=== PATIENT | male | born 1945 | race Caucasian/White ===

== ENCOUNTER 2016-07-02 19:43 | Observation (INO) | payer MEDICARE, OTHER ==
[~2016-07-02] VITALS: Ht 182.9 cm; Wt 94.8 kg
[~2016-07-02 19:43] MED LIST: ASPI81TA45 PO; CALTTAB PO; DENO120P SC; ENZA40CA PO; GLUCTAB PO; LEUP7.5S2 SC; LIPI40TA PO; LISI-360 PO; METO50CR PO; PROP150 PO; RIVA20 PO; TAMS0.4C67 PO; UMEC1AER INH
[2016-07-02 19:45] VITALS: BP 152/75; PULSE 72; RESP 14; TEMP 98.2; O2SAT 97
[2016-07-02] MEDS ORDERED: SODIUM CHLOR 0.9% 1000 ML INJ 1,000 ML IV ONE (19:50)
[2016-07-02 19:51] VITALS: O2SAT 97
[2016-07-02] MEDS ORDERED: XARE20TA PO (19:59)
[2016-07-02] MEDS ORDERED: DENO120P SQ (19:59)
[2016-07-02] MEDS ORDERED: LISI-519 PO (19:59)
[2016-07-02] MEDS ORDERED: TAMS0.4C4 PO (19:59)
[2016-07-02] MEDS ORDERED: LEUP1INJ10 SQ (19:59)
[2016-07-02] MEDS ORDERED: LEVO25TA4 PO (19:59)
[2016-07-02] MEDS ORDERED: LIPI80TA PO (19:59)
[2016-07-02] MEDS ORDERED: CALCCHW4 CHEW (19:59)
[2016-07-02] MEDS ORDERED: METF500T PO (19:59)
[2016-07-02] MEDS ORDERED: METO50TA11 PO (19:59)
[2016-07-02] MEDS ORDERED: PROP150T PO (19:59)
--- NOTE | 2016-07-02 20:01 | RADHPO ---
EXAM DATE/TIME: 07/02/2016 19:48 [facility] COMPARISON: No previous studies available for comparison. INDICATIONS : Stroke alert. Slow speech, right sided tingling. RADIATION DOSE: 60.90 CTDIvol (mGy) This report was called by Dr. Finch to Dr. Kathleen at 7: 58 PM MEDICAL HISTORY : Non-responsive. SURGICAL HISTORY : Non-responsive. ENCOUNTER: Initial ACUITY: 1 day PAIN SCALE: 0/10 LOCATION: cranial TECHNIQUE: Multiple contiguous axial images were obtained of the head. Using automated exposure control and adj ustment of the mA and/or kV according to patient size, radiation dose was kept as low as reasonably a chievable to obtain optimal diagnostic quality images. FINDINGS: CEREBRUM: The ventricles are normal for age. No evidence of midline shift, mass lesion, hemorrhage or acute in farction. No extra-axial fluid collections are seen. POSTERIOR FOSSA: The cerebellum and brainstem are intact. The 4th ventricle is midline. The cerebellopontine angle i s unremarkable. EXTRACRANIAL: The visualized portion of the orbits is intact. SKULL: The calvaria is intact. No evidence of skull fracture. CONCLUSION: Negative noncontrast head CT. Ricky Finch MD on July 02, 2016 at 20:00 Board Certified Radiologist. This report was verified electronically.
[2016-07-02] MEDS ORDERED: HYDR2TAB PO (20:02)
[2016-07-02] MEDS ORDERED: ONDA1TAB17 PO (20:02)
[2016-07-02] MEDS ORDERED: ZYTI250T PO (20:02)
[2016-07-02] MEDS ORDERED: PRED5TAB PO (20:02)
[2016-07-02 20:16] LABS: BASOPHIL % 0.4 % (0.0-2.0); EOSINOPHIL # 0.2 TH/MM3 (0-0.4); EOSINOPHIL % 2.2 % (0.0-4.0); HEMATOCRIT 39.4 % (39.0-51.0); HEMO FLAGS DIFF FINAL; LYMPH % 22.5 % (9.0-44.0); LYMPHOCYTE # 1.9 TH/MM3 (1.0-4.8); MEAN CELL VOLUME 97.3 FL (80.0-100.0); MEAN CORPUSCULAR HEMOGLOBIN 32.9 PG (27.0-34.0); MEAN CORPUSCULAR HGB CONC 33.8 % (32.0-36.0); MONO % 6.1 % (0.0-8.0); NEUT % 68.8 % (16.0-70.0); PLATELET COUNT 165 TH/MM3 (150-450); RED BLOOD COUNT 4.05 MIL/MM3 (4.50-5.90); RED CELL DISTRIBUTION WIDTH 13.3 % (11.6-17.2); WHITE BLOOD COUNT 8.6 TH/MM3 (4.0-11.0)
[2016-07-02 20:22] LABS: CHLORIDE 103 MEQ/L (98-107); POTASSIUM 4.1 MEQ/L (3.5-5.1); SODIUM (NA) 140 MEQ/L (136-145)
[2016-07-02 20:26] LABS: ANION GAP 9 MEQ/L (5-15); BICARBONATE 27.6 MEQ/L (21.0-32.0); BLOOD UREA NITROGEN 19 MG/DL (7-18)
[2016-07-02 20:28] LABS: PROTHROMBIN TIME - PATIENT 10.7 SEC (9.8-11.6)
[2016-07-02 20:29] LABS: GLOMERULAR FILTRATION RATE 74 ML/MIN (>89)
[2016-07-02 20:40] LABS: CREATINE KINASE 57 U/L (39-308)
[2016-07-02] MEDS ORDERED: ASPIRIN 325 MG TAB PO ONE (20:45)
[2016-07-02 20:50] VITALS: BP 149/71; PULSE 66; RESP 14; O2SAT 98
--- NOTE | 2016-07-02 21:01 | PD ---
HPI Chief Complaint: Stroke Alert Time Seen by Provider: 19:50 Travel History International Travel<30 days: No Contact w/Intl Traveler<30days: No Traveled to known affect area: No History of Present Illness HPI Patient is 71 years old. About 1 hour prior to ER arrival he had sudden onset paresthesias and weakness in the right upper extremity. He is also dysarthric. He came to the ER and on the way symptoms improved by about "90%" according to the . In the ER stroke alert was activated due to dysarthria, quite mild. Patient has no other complaint. He notes stopping Xarelto one week prior due to GI bleed and hematuria as well as bleeding gums. Location neurologic. Onset sudden. Timing constant. Severity decreasing. PFSH Past Medical History Arthritis: No Asthma: No Anxiety: No Depression: No Heart Rhythm Problems: Yes (PVC's, AF) Cancer: Yes (MET. PROSTATE CANCER WITH METS TO BONE AND LYMPH NODES) Cardiovascular Problems: Yes High Cholesterol: Yes Chemotherapy: Yes Chest Pain: Yes Congestive Heart Failure: No COPD: No Cerebrovascular Accident: Yes (25 years ago then MRI was clear 5-6 years later) Coronary Artery Disease: Yes Diabetes: Yes Patient Takes Glucophage: Yes Endocrine: No Genitourinary: Yes Hypertension: Yes Kidney Stones: No Musculoskeletal: Yes Neurologic: Yes Psychiatric: No Reproductive: No Respiratory: Yes Migraines: No Pneumonia: Yes (MAR 2015) Radiation Therapy: Yes (prostate, hip) Renal Failure: No Sleep Apnea: No Thyroid Disease: No Tetanus Vaccination: > 5 Years Influenza Vaccination: Yes Past Surgical History Abdominal Aneurysm Repair: Yes (Stent) Abdominal Surgery: Yes (AAA repair with stents ) Cardiac Surgery: Yes (CAD, stents) Ear Surgery: No Endocrine Surgery: Yes (Diabetic) Eye Surgery: Yes (BL cataracts ) Genitourinary Surgery: No Oral Surgery: Yes (tonsillectomy/ child) Thoracic Surgery: No Tonsillectomy: Yes Other Surgery: Yes Social History Alcohol Use: Yes (Occ.) Tobacco Use: No Substance Use: No Allergies-Medications (Allergen,Severity, Reaction): Coded Allergies: Codeine (Verified Allergy, Intermediate, RASH, 07/02/16) Penicillin (Verified Allergy, Intermediate, RASH, 07/02/16) Reported Meds & Prescriptions Reported Meds & Active Scripts Active Reported Hydromorphone (Hydromorphone HCl) 2 Mg Tab 1 Mg PO Q4H PRN Ondansetron (Ondansetron HCl) 8 Mg Tab 8 Mg PO TID Zytiga (Abiraterone) 250 Mg Tab 250 Mg PO DAILY Hazardous agent; use appropriate precautions for handling & disposal. Take on an empty stomach, 1 hr before or 2 hrs after food. Swallow whole, do not crush or chew. Prednisone 5 Mg Tab 5 Mg PO BID Xgeva Inj (Denosumab) 120 Mg/1.7 Ml Inj 120 Mg SQ DIRECTED Eligard (Leuprolide Acetate (3 Month)) 22.5 Mg Inj 22.5 Mg SQ DIRECTED EVERY 4 MONTHS Tamsulosin (Tamsulosin HCl) 0.4 Mg Cap 0.4 Mg PO BID Calcium 500/D (Calcium Carbonate-Cholecalciferol) 500-400 Mg-Unit Chew 1 Tab CHEW DAILY Levothyroxine (Levothyroxine Sodium) 25 Mcg Tab 25 Mcg PO DAILY Metoprolol Succinate ER 24 HR (Metoprolol Succinate) 50 Mg Tab 50 Mg PO DAILY Propafenone (Propafenone HCl) 150 Mg Tab 150 Mg PO Q8HR Xarelto (Rivaroxaban) 20 Mg Tab 20 Mg PO DAILY Metformin (Metformin HCl) 500 Mg Tab 500 Mg PO TIDPC With meals Lisinopril 5 Mg Tab 5 Mg PO DAILY Lipitor (Atorvastatin Calcium) 80 Mg Tab 80 Mg PO HS Review of Systems Except as stated in HPI: all other systems reviewed are Neg Physical Exam Narrative GENERAL: 71-year-old male pleasant no acute distress SKIN: Focused skin assessment warm/dry. HEAD: Atraumatic. Normocephalic. EYES: Pupils equal and round. No scleral icterus. No injection or drainage. ENT: No nasal bleeding or discharge. Mucous membranes pink and moist. NECK: Trachea midline. No JVD. CARDIOVASCULAR: Regular rate and rhythm. No murmur appreciated. RESPIRATORY: No accessory muscle use. Clear to auscultation. Breath sounds equal bilaterally. GASTROINTESTINAL: Abdomen soft, non-tender, nondistended. Hepatic and splenic margins not palpable. MUSCULOSKELETAL: No obvious deformities. No clubbing. No cyanosis. No edema. NEUROLOGICAL: Cranial nerves appears symmetric and intact 2 through 12. Motor function is 5 over 5 and equal bilaterally. Major muscle groups including handgrip. There is no pronator drift. The patient's speech is incomprehensible however there is a very mild dysarthria, which the states is abnormal. PSYCHIATRIC: Appropriate mood and affect; insight and judgment normal. Data Data Last Documented VS Vital Signs Date Time Temp Pulse Resp B/P Pulse Ox O2 Delivery O2 Flow Rate FiO2 07/02/16 19:45 97 Room Air 07/02/16 19:45 98.2 72 14 152/75 Vital signs reviewed Orders Cath For Specimen (07/02/16 19:50) Neuro Checks Q2HX12,Q4H (07/02/16 19:50) Nursing Bedside Swallow Assess .ONCE (07/02/16 19:50) Activity Bed Rest (07/02/16 19:50) Diet Npo (07/03/16 Breakfast) Prothrombin Time / Inr (Pt) (07/02/16 19:50) Act Partial Throm Time (Ptt) (07/02/16 19:50) Complete Blood Count With Diff (07/02/16 19:50) Basic Metabolic Panel (Bmp) (07/02/16 19:50) Fibrinogen (07/02/16 19:50) Creatine Kinase (Cpk) (07/02/16 19:50) Troponin I (07/02/16 19:50) Ua Includes Microscopic (07/02/16 19:50) Drug Screen, Random Urine (07/02/16 19:50) Type And Screen (07/02/16 19:50) Ct Brain W/O Iv Contrast(Rout) (07/02/16 ) Electrocardiogram (07/02/16 ) Consult Neurology (07/02/16 19:50) Sodium Chlor 0.9% 1000 Ml Inj (Ns 1000 M (07/02/16 19:50) Blood Glucose (07/02/16 19:50) Ecg Monitoring (07/02/16 19:50) Iv Access Insert/Monitor (07/02/16 19:50) NPO (07/02/16 19:50) Oximetry (07/02/16 19:50) Oxygen Administration (07/02/16 19:50) Resp Oxygen Michael C Titrat 1-4 L (07/02/16 19:50) Aspirin (Aspirin) (07/02/16 20:45) Admit Order (Ed Use Only) (07/02/16 20:36) Labs Laboratory Tests Test 07/02/16 20:00 White Blood Count 8.6 TH/MM3 Red Blood Count 4.05 MIL/MM3 Hemoglobin 13.3 GM/DL Hematocrit 39.4 % Mean Corpuscular Volume 97.3 FL Mean Corpuscular Hemoglobin 32.9 PG Mean Corpuscular Hemoglobin 33.8 % Concent Red Cell Distribution Width 13.3 % Platelet Count 165 TH/MM3 Mean Platelet Volume 7.6 FL Neutrophils (%) (Auto) 68.8 % Lymphocytes (%) (Auto) 22.5 % Monocytes (%) (Auto) 6.1 % Eosinophils (%) (Auto) 2.2 % Basophils (%) (Auto) 0.4 % Neutrophils # (Auto) 6.0 TH/MM3 Lymphocytes # (Auto) 1.9 TH/MM3 Monocytes # (Auto) 0.5 TH/MM3 Eosinophils # (Auto) 0.2 TH/MM3 Basophils # (Auto) 0.0 TH/MM3 CBC Comment DIFF FINAL Differential Comment Prothrombin Time 10.7 SEC Prothromb Time International 1.0 RATIO Ratio Activated Partial 25.0 SEC Thromboplast Time Sodium Level 140 MEQ/L Potassium Level 4.1 MEQ/L Chloride Level 103 MEQ/L Carbon Dioxide Level 27.6 MEQ/L Anion Gap 9 MEQ/L Blood Urea Nitrogen 19 MG/DL Creatinine 0.99 MG/DL Estimat Glomerular Filtration 74 ML/MIN Rate Random Glucose 165 MG/DL Calcium Level 8.8 MG/DL Total Creatine Kinase 57 U/L Troponin I LESS THAN 0.02 NG/ML [facility] Medical Screen Exam Complete: Yes Emergency Medical Condition: Yes Differential Diagnosis Stroke, TIA, electrolyte imbalance, hypoglycemia Narrative Course CBC & BMP Diagram 07/02/16 20:00 Troponins less than 0.02 EKG reveals a sinus rhythm at a rate of 68 normal axis intervals no ischemic injury pattern Last [address] 07/02/16 0000 Signed Impressions: Service Date/Time: Saturday, July 02, 2016 19:48 - CONCLUSION: Negative noncontrast head CT. Ricky Finch MD The patient is a poor candidate for TPA with absolute contraindications present. Case discussed with neurologist, Dr. Gonzalez. No TPA for this visit. Admission for further work up of stroke. D/w Ricky Sheldon. Stroke Alert NIHSS NIH Stroke Scale Result: 1 NIHSS Time Completed: 19:55 Thrombolytic Contraindications Contraindications Comment: Please see narrative course and history of present illness Diagnosis Diagnosis: Primary Impression: Stroke Qualified Code: I63.9 - Cerebrovascular accident (CVA), unspecified mechanism Admitting Physician Requests: Admit Saroj Kathleen MD Jul 02, 2016 21:01
[2016-07-02 22:10] VITALS: O2SAT 97
[2016-07-02] MEDS ORDERED: GLUCAGON 1 MG/ML VIAL IM/SQ PRN (22:15)
[2016-07-02] MEDS ORDERED: ONDANSETRON HCL 4 MG/2 ML VIAL IVP PRN (22:15)
[2016-07-02] MEDS ORDERED: ENALAPRILAT 1.25 MG/ML VIAL IV PRN (22:15)
[2016-07-02] MEDS ORDERED: NALOXONE HCL 0.4 MG/ML AMP IV PRN (22:15)
[2016-07-02] MEDS ORDERED: SENNOSIDES 8.6 MG TAB PO PRN (22:15)
[2016-07-02] MEDS ORDERED: DEXTROSE 50% IN WATER 50 ML VIAL(D50) IV PUSH PRN (22:15)
[2016-07-02] MEDS ORDERED: SODIUM CHLORIDE 0.9% FLUSH 10 ML FLUSH IV FLUSH PRN ×2 (22:15)
[2016-07-02] MEDS ORDERED: BISACODYL 10 MG SUPP RECTAL PRN (22:15)
[2016-07-02] MEDS ORDERED: ENOXAPARIN SODIUM 40 MG/0.4 ML SYRINGE SQ SCH (23:00)
[2016-07-02] MEDS: SODIUM CHLOR 0.9% 1000 ML INJ 1,000 ML IV SCH (23:31)
[2016-07-02 23:33] VITALS: BP 148/75; PULSE 66; O2SAT 99
[2016-07-03] VITALS (10 sets, daily range): BP systolic 117–140; BP diastolic 63–76; PULSE 51–74; RESP 12–20; TEMP 96–98.1; O2SAT 96–99
[2016-07-03] MEDS: INSULIN ASPART SUPPLEMENTAL SCALE SQ SCH ×4 (07:00→22:03)
[2016-07-03] MEDS ORDERED: INSULIN ASPART SUPPLEMENTAL SCALE SQ SCH (07:00)
[2016-07-03] MEDS: SODIUM CHLOR 0.9% 1000 ML INJ 1,000 ML IV SCH ×3 (08:03→16:22)
--- NOTE | 2016-07-03 08:42 | RADHPO ---
EXAM DATE/TIME: 07/03/2016 07:57 [facility] COMPARISON: No previous studies available for comparison. INDICATIONS : CVA. MEDICAL HISTORY : Hypercholesterolemia. Hypertension. Aneurysm, abdominal. Pneumonia. CVA. CAD. Hypertension. A-Fib. Di abetes. Prostate cancer. Mets to bone and lymph nodes. Chemotherapy. Radiation therapy. SURGICAL HISTORY : Tonsillectomy. Abdominal aortic aneurysm repair. Coronary artery stent. ENCOUNTER: Initial ACUITY: 2 days PAIN SCORE: 1/10 LOCATION: Bilateral neck PEAK SYSTOLIC VELOCITIES (cm/sec): ICA/CCA RATIO: Right: 1.4 Left: 1.2 ICA: Right: 90 Left: 78 CCA: Right: 65 Left: 64 ECA: Right: 74 Left: 82 VERTEBRAL: Right: 39 antegrade Left: 36 antegrade Elevated flow velocities and ICA/CCA ratios have been found to correlate with increased degrees of vessel stenosis, calculated as percentage of diameter relative to a normal segment of distal ICA/CCA FINDINGS: RIGHT CAROTID: No significant stenosis is visualized. The waveforms are within normal limits. LEFT CAROTID: No significant stenosis is visualized. The waveforms are within normal limits. VERTEBRAL ARTERIES: Antegrade flow is seen in both vertebral arteries. MISCELLANEOUS: None. CONCLUSION: No evidence of flow-limiting carotid stenosis Ricky Conley MD on July 03, 2016 at 8:40 Board Certified Radiologist. This report was verified electronically.
[2016-07-03] MEDS ORDERED: ASPIRIN 325 MG TAB PO SCH (09:00)
[2016-07-03] MEDS ORDERED: SODIUM CHLORIDE 0.9% FLUSH 10 ML FLUSH IV FLUSH SCH (09:00)
[2016-07-03] MEDS: SODIUM CHLORIDE 0.9% FLUSH 10 ML FLUSH IV FLUSH SCH ×2 (09:48→21:00)
[2016-07-03 10:09] LABS: HDL CHOLESTEROL 46.6 MG/DL (40.0-60.0); LDL CHOLESTEROL 41 MG/DL (0-99)
[2016-07-03] MEDS ORDERED: HEPARIN-D5W INJ 250 ML IV SCH (10:15)
--- NOTE | 2016-07-03 10:30 | MH ---
cc: CHARLIE MARCH MD DATE OF ADMISSION: 07/02/2016 CHIEF COMPLAINT Numbness and weakness on the right upper extremity. HISTORY OF PRESENT ILLNESS This is a 71-year-old male with past medical-surgical history significant for atrial fibrillation, history of prostate cancer with mets to bone and lymph node, history of stroke 30 years ago and a year ago, hyperlipidemia, diabetes mellitus, history of chemotherapy and radiation therapy in the past, history of hypertension, history of pneumonia in March of 2015, radiation therapy to prostate and hip, history of abdominal aortic aneurysm, stent placement, coronary artery stent placement, history of bilateral cataract surgery and tonsillectomy as a child. He came to the ER at [facility] [place] complaining of numbness and weakness in the right upper extremity which lasted no more than 24 hours and he has some dysarthria too, which totally resolved and the symptoms have been improved about 90% yesterday and today he is totally asymptomatic. A stroke alert was activated in the ER due to dysarthria and numbness and weakness on the right upper extremity. He stopped Xarelto a week ago due to a GI bleed and hematuria as well as bleeding gums. Other than that nothing significant. PAST MEDICAL HISTORY/PAST SURGICAL HISTORY As dictated above. The patient also has a history of hypothyroidism, BPH. SOCIAL HISTORY Denies any smoking, drinks alcohol occasionally. Denies any drug abuse. Lives at home with . 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 FAMILY HISTORY Family history significant for coronary artery disease. ALLERGIES CODEINE, PENICILLIN. MEDICATIONS Include: 1. Dilaudid 2 mg p.o. q. 4-hour. 2. Zofran 8 mg p.o. t.i.d. 3. Zytiga 250 mg p.o. daily. 4. Prednisone 5 mg p.o. b.i.d. 5. Xgeva injection 120 mg subcutaneous as directed. 6. Eligard 22.5 mg subcutaneous every 4-months. 7. Flomax 0.4 mg p.o. b.i.d. 8. Calcium with vitamin D 500/400 units p.o. daily. 9. Levothyroxine 25 mcg p.o. daily. 10. Metoprolol ER 50 mg p.o. daily. 11. Propafenone 150 mg p.o. q.8 hour. 12. Metformin 500 mg p.o. t.i.d. 13. Lisinopril 5 mg p.o. daily. 14. Lipitor 80 mg p.o. at bedtime. REVIEW OF SYSTEMS All review of systems are negative at the time of examination. PHYSICAL EXAMINATION GENERAL: This is 71-year-old male laying on the bed, not in acute distress. VITAL SIGNS: Temperature 97.7, heart rate 65, respirations 20, blood pressure 136/66, O2 saturation 97% on room air. HEENT: Normocephalic, atraumatic. EOMI. PERRL. Oral mucosa moist. NECK: Neck is supple. No visible thyromegaly or neck mass. Trachea central. CVS: Regular rate and rhythm. RESPIRATORY: Respirations are clear to auscultation bilaterally. ABDOMEN: Soft, nontender. Bowel sounds audible. EXTREMITIES: No cyanosis or clubbing. Full range of motion of all extremities. NEURO: Awake, alert, oriented x4. No focal deficits. SKIN: Warm and dry. PSYCHE: The patient is cooperative. Mood and affect is normal. LABORATORY DATA Include CBC totally unremarkable. BMP totally unremarkable except for BUN 19 high, GFR 74 low, blood glucose 165 high. Troponin-I less than 0.02. Lipid panel is pending. PT 10.7, INR 1.0, APTT 25.0, fibrinogen 324. IMAGING STUDIES CT brain done shows nothing acute. Carotid ultrasound done shows no evidence of flow-limiting carotid stenosis. ASSESSMENT/PLAN 1. This is a 71-year-old male who came to the ER diagnosed with right upper extremity numbness and weakness and dysarthria, which is totally resolved, most likely secondary to TIA. The patient is on aspirin 325 mg p.o. daily and also Lovenox 40 mg subcutaneous q. 24-hour. Neurology consulted. Neuro check every 4 hours. Further recommendation per neurology. 2. Diabetes mellitus. ADA 1800 calorie diet. NovoLog low-dose, sliding scale. Check blood sugars a.c. and h.s. Continue home medication. Will monitor blood sugar closely. 3. History of BPH. Continue with Flomax 0.4 mg twice a day. 4. History of hypothyroidism. Continue with levothyroxine 25 mcg p.o. daily. 5. Hypertension. Continue home medication. Monitor blood pressure. 6. Hyperlipidemia. Continue Lipitor 80 mg p.o. at bedtime. 7. Arthritis. Continue home medication. 8. History of coronary artery disease. Continue home medication. 9. History of for coronary stent placement in the past. 10. 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 11. History of atrial fibrillation. The patient was on Xarelto before and got blood per rectum as well as hematuria and bleeding gums which has been stopped. 12. History of abdominal aortic aneurysm repair, coronary artery stenting, cataract surgery and tonsillectomy in the past. 13. DVT prophylaxis, on Lovenox 40 mg subcutaneous daily. 14. GI prophylaxis, Protonix 40 mg p.o. daily. We are going to manage the patient on a daily basis and make recommendation on a daily basis. Charlie March MD EA/LEONARDA /9:42 AM /10:05 AM
--- NOTE | 2016-07-03 11:28 | MB ---
cc: ROSETTA DIAZ DATE OF CONSULTATION: 07/03/2016 HISTORY OF PRESENT ILLNESS A 71-year-old right-handed man with hypertension, non-insulin dependent diabetes, hypercholesterolemia, cardiac stent, possibly a AAA with stent in his aorta, atrial fibrillation known on Xarelto which he stopped 11 days ago due to some hematuria, some black stools with some dark blood in it, bloody nose, bleeding in his gums. He has known cancer of the prostate, he says terminal with bone mets and mets in his nodes. He sees Dr. Gonsalez, he has been on some oral chemo. He had a stroke 30 years ago with some speech problems which cleared. Yesterday he had right arm weakness and numbness and face numbness and slurred speech, garbled speech for about 15 minutes, seemed to get better and then over 3 hours normalized. No vision loss. No chest pain or palpitations. SOCIAL HISTORY Nonsmoker, nondrinker. Lives with his . FAMILY HISTORY Negative for cancer, seizure, stroke. REVIEW OF SYSTEMS He denies any CABG, renal, hepatic or pulmonary disease, thyroid disease, lupus, seizure. PAST MEDICAL HISTORY 1. Remote broken wrist. 2. Carpal tunnel surgery bilaterally. 3. 2002 two cardiac stents. 4. Peripheral vascular disease 89% in the right, 40% on the left, status post surgery, angioplasty in the legs. 5. Cataract surgeries bilaterally. MEDICATIONS 1. He is on 325 of aspirin now. 2. Lovenox 40 q. 12. PHYSICAL EXAMINATION VITAL SIGNS: On exam afebrile, 53, 21, 36/66 to 152/75. NECK: There are no carotid bruits. HEART: Regular rhythm, I do not detect a murmur. Pupils are equal, visual corbett are full. Extraocular movements intact without nystagmus. Face symmetric with normal sensation. Tongue was midline. There is no drift. He had normal strength in upper and lower extremities bilaterally. DTRs are trace throughout. Toes are downgoing bilaterally. Pinprick is intact throughout. He is not ataxic on [id number]. Speech is fluent, he is not aphasic. Repetition is normal. Gait is steady. LABORATORY DATA CBC is normal, platelet count is normal. Hematocrit 39. Basic metabolic profile essentially normal. Cholesterol is pending. Troponin, CPK are normal. Coags were normal. IMAGING STUDIES Carotid ultrasound negative. CAT scan of the brain was read as normal. I reviewed the CAT scan films; probable artifact in the inferior jackelin on the right, otherwise CT does look normal. IMPRESSION Major TIA, history of atrial fibrillation, stroke in the past. He does need to be anticoagulated, at this point with his GI bleeding and neurological bleeding I would put him on Coumadin. I can start him on some IV heparin, no bolus ever. I would recommend having GI and neurology see him to further find sources of the bleeding. Keep his INR 2 to 2.5. Check an MRI of the brain, Echo, MRA of the neck and [id number]. I will be following him with you in the hospital. Now he appeared fully recovered, TIA here, possible small stroke but he appears intact neurologically at this time. I am going to discontinue his aspirin for now. Also with his history of bony mets, we will check MRI of his cervical, thoracic and lumbosacral spine. MD SAKSHI Khan/LEONARDA /10:11 AM /11:02 AM
[2016-07-03 11:32] LABS: MEAN CELL VOLUME 98.2 FL (80.0-100.0); MEAN CORPUSCULAR HEMOGLOBIN 33.2 PG (27.0-34.0); MEAN CORPUSCULAR HGB CONC 33.8 % (32.0-36.0); PLATELET COUNT 157 TH/MM3 (150-450); RED BLOOD COUNT 3.87 MIL/MM3 (4.50-5.90); RED CELL DISTRIBUTION WIDTH 13.4 % (11.6-17.2); REVIEW FLAG FINAL; WHITE BLOOD COUNT 7.2 TH/MM3 (4.0-11.0)
[2016-07-03 11:45] LABS: APTT (PATIENT) 27.1 SEC (24.3-30.1); PROTHROMBIN TIME - PATIENT 11.1 SEC (9.8-11.6)
--- NOTE | 2016-07-03 12:29 | EC ---
Study Study Date:07/03/2016 STUDY CONCLUSIONS SUMMARY - Left ventricle: The cavity size was normal. Wall thickness was normal. Systolic function was normal. The estimated ejection fraction was in the range of 55% to 60%. Wall motion was normal; there were no regional wall motion abnormalities. - Aortic valve: Mild regurgitation. - Mitral valve: Mild regurgitation. - Left atrium: The atrium was mildly dilated. - Tricuspid valve: Mild regurgitation. - Pulmonary arteries: Systolic pressure was mildly increased. PA peak pressure: 49mm Hg (S). If LV function is below 40, please consider prescribing an ACEI or ARB or document rationale for non-use. PROCEDURE DATA STUDY STATUS: Elective. Procedure: Transthoracic echocardiography. Image quality was good. Scanning was performed from the parasternal, apical, and subcostal acoustic windows. Study completion: The patient tolerated the procedure well. Transthoracic echocardiography. M-mode, complete 2D, complete spectral Doppler, and color Doppler. Patient status: Inpatient. CARDIAC ANATOMY LEFT VENTRICLE: The cavity size was normal. Wall thickness was normal. Systolic function was normal. The estimated ejection fraction was in the range of 55% to 60%. Wall motion was normal; there were no regional wall motion abnormalities. AORTIC VALVE: Trileaflet; normal thickness leaflets. Doppler: Transvalvular velocity was within the normal range. There was no stenosis. Mild regurgitation. AORTA: Aortic root: The aortic root was normal in size. MITRAL VALVE: Structurally normal valve. Doppler: Transvalvular velocity was within the normal range. There was no evidence for stenosis. Mild regurgitation. Peak gradient: 4mm Hg (D). LEFT ATRIUM: The atrium was mildly dilated. RIGHT VENTRICLE: The cavity size was normal. Wall thickness was normal. PULMONIC VALVE: Doppler: Transvalvular velocity was within the normal range. There was no evidence for stenosis. No regurgitation. TRICUSPID VALVE: Structurally normal valve. Doppler: Transvalvular velocity was within the normal range. Mild regurgitation. PULMONARY ARTERY: Systolic pressure was mildly increased. RIGHT ATRIUM: The atrium was normal in size. PERICARDIUM: There was no pericardial effusion. SYSTEMIC VEINS: Inferior vena cava: The vessel was normal in size. BASIC MEASUREMENTS ADULT NORMAL Left ventricle LV internal dimension, ED, chordal level, 44.6 mm 43-52 PLAX LV internal dimension, ES, chordal level, 33 mm 23-38 PLAX Fractional shortening, chordal level, PLAX *26 % >29 LV posterior wall thickness, ED 9.93 mm IVS/LVPW ratio, ED 0.92 <1.3 Volume, ED, MOD, 1-plane 73 ml Volume, ES, MOD, 1-plane 30 ml Ejection fraction, MOD, 1-plane 59 % Stroke volume, MOD, 1-plane 43 ml Ventricular septum Septal thickness, ED 9.16 mm Aortic valve Leaflet separation 22 mm 15-26 Right ventricle RV internal dimension, ED, PLAX 28 mm 19-38 BASIC MEASUREMENTS ADULT NORMAL Aortic valve Leaflet separation 22 mm 15-26 Aorta Root diameter, ED *39 mm 20-37 Left atrium Anterior-posterior dimension, ES *41 mm 19-40 LA/aortic root ratio 1.05 DOPPLER MEASUREMENTS ADULT NORMAL Main pulmonary artery Pressure, S *49 mm Hg =30 Aortic valve Regurgitant velocity, ED 351 cm/s Regurgitant deceleration 1790 cm/s^2 Regurgitant pressure half-time 572 ms Regurgitant gradient, ED 49 mm Hg Mitral valve Peak E-wave velocity 99.2 cm/s Peak A-wave velocity 109 cm/s Peak gradient, D 4 mm Hg Peak E/A ratio 0.9 Tricuspid valve Regurgitant peak velocity 314 cm/s Peak RV-RA gradient, S 39 mm Hg Maximal regurgitant velocity 314 cm/s Systemic veins Estimated CVP 10 mm Hg Right ventricle RV pressure, S *49 mm Hg <30 LEGEND: Mean values are shown as u=mean value. Asterisk (*) [place] values outside specified normal range. Prepared and signed by Lucien Galvez [id number]
[2016-07-03] MEDS: HEPARIN-D5W INJ 250 ML IV SCH (14:12)
[2016-07-03] MEDS ORDERED: WARFARIN SOD 5 MG TAB PO SCH (16:00)
--- NOTE | 2016-07-03 16:06 | RADHPO ---
EXAM DATE/TIME: 07/03/2016 14:57 [facility] COMPARISON: No previous studies available for comparison. INDICATIONS : CVA. Right sided numbness and aphasia. MEDICAL HISTORY : Hypertension. Carcinoma, prostate. Diabetes. SURGICAL HISTORY : Tonsillectomy. Abdominal aortic aneurysm repair. Carpal tunnel syndrome. ENCOUNTER: Subsequent ACUITY: 2 day PAIN SCORE: 3/10 LOCATION: cranial Please note a normal MRA of the brain does not entirely exclude the possibility of a small aneurysm, nor the possibility of distal intracranial vessel disease. TECHNIQUE: 3D time of flight MRA was performed. Source images, multiplanar STS MIP, and 3D volume MIP reconstru ctions were reviewed. FINDINGS: There is excellent visualization of the major intracranial arteries out to the second-order branch ve ssels. There is no evidence for aneurysm, vessel truncation or stenosis, and no evidence for vascula r malformation. CONCLUSION: Normal examination. Lucien Benitez MD on July 03, 2016 at 16:04 Board Certified Radiologist. This report was verified electronically.
--- NOTE | 2016-07-03 16:09 | RADHPO ---
EXAM DATE/TIME: 07/03/2016 14:57 [facility] COMPARISON: No previous studies available for comparison. INDICATIONS : CVA. Right sided weakness and aphasia. CONTRAST: 20 cc Omniscan (gadodiamide) IV MEDICAL HISTORY : Hypertension. Diabetes mellitus type 2. Carcinoma, prostate. SURGICAL HISTORY : Tonsillectomy. Abdominal aortic aneurysm repair. Carpal tunnel syndrome. ENCOUNTER: Initial ACUITY: 1 day PAIN SCORE: 0/10 LOCATION: Head. TECHNIQUE: Multiplanar, multisequence MRI of the brain was performed both prior to and following the administrat ion of paramagnetic contrast. FINDINGS: CEREBRUM: The ventricles are normal for age. No evidence of midline shift, mass lesion, hemorrhage or acute in farction. No extraaxial fluid collections are seen. The pituitary gland and suprasellar cistern are normal in configuration. WHITE MATTER: No significant signal abnormalities are seen in the white matter. POSTERIOR FOSSA: The cerebellum and brainstem are intact. The 4th ventricle is midline. The cerebellopontine angle is unremarkable. The cerebellar tonsils are normal in position. DIFFUSION IMAGING: No focal areas of restricted diffusion are seen. No evidence of acute infarction. EXTRACRANIAL: The visualized portions of the orbits and paranasal sinuses are unremarkable. POST-CONTRAST: No abnormal areas of parenchymal or dural enhancement. No evidence of blood-brain barrier breakdown. CONCLUSION: Normal examination. Lucien Benitez MD on July 03, 2016 at 16:07 Board Certified Radiologist. This report was verified electronically.
[2016-07-03 16:17] LABS: HEMOGLOBIN A1a 0.7 %; HEMOGLOBIN A1b 2.1 %; HEMOGLOBIN Ao 82.6 %; HEMOGLOBIN LA1C 2.2 %; HEMOGLOBIN P3 4.1 %
[2016-07-03 16:27] LABS: FREE T4 1.58 NG/DL (0.76-1.46)
[2016-07-03] MEDS ORDERED: GADODIAMIDE PF 287 MG/ML 20 ML VIAL (for RAD MRI) IV ONE (16:28)
--- NOTE | 2016-07-03 16:48 | RADHPO ---
EXAM DATE/TIME: 07/03/2016 14:57 [facility] COMPARISON: No previous studies available for comparison. INDICATIONS : Stroke. Right sided weakness with aphasia. CONTRAST: 20 cc Omniscan (gadodiamide) IV MEDICAL HISTORY : Hypertension. Diabetes mellitus type 2. Carcinoma, prostate. SURGICAL HISTORY : Tonsillectomy. Carpal tunnel syndrome. Abdominal aortic aneurysm repair. ENCOUNTER: Initial ACUITY: 1 day PAIN SCORE: 0/10 LOCATION: Neck. Percent stenosis is calculated using the diameter of the stenotic region over the diameter of the nor mal distal internal carotid artery. TECHNIQUE: Bolus infused MRA of the extracranial circulation was performed using a neurovascular coil. Post pro cessing was performed including rotating subvolume maximum intensity projections of each carotid teodoro ry, rotating full volume maximum intensity projections of both carotid arteries, sagittal and coronal sliding thin slab reformations of each carotid artery, and left oblique sliding thin slab reformatio n through the aortic arch to include the origin of the arch branch vessels. FINDINGS: AORTIC ARCH: Truncus arch anatomy. Widely patent arch vessels. RIGHT CAROTID: The common carotid artery is intact. The carotid bulb has a normal configuration without ulceration or narrowing. The internal carotid artery lumen is smooth without stenosis. The external carotid ar [place] is intact. LEFT CAROTID: The common carotid artery is intact. The carotid bulb has a normal configuration without ulceration or narrowing. The internal carotid artery lumen is smooth without stenosis. The external carotid ar [place] is intact. VERTEBRALS: The vertebral arteries have a symmetric diameter. No stenotic lesions are seen. CONCLUSION: No evidence of carotid stenosis Ricky Conley MD on July 03, 2016 at 16:46 Board Certified Radiologist. This report was verified electronically.
[2016-07-03 20:26] LABS: APTT (PATIENT) 38.9 SEC (24.3-30.1)
[2016-07-03] MEDS ORDERED: THIAMINE HCL 100 MG TAB PO ONE (20:45)
[2016-07-03 21:03] LABS: BLOOD, URINE LARGE (NEG); GLUCOSE,URINE NEG (NEG); KETONE, URINE NEG (NEG); NITRITE,URINE NEG (NEG); PH, URINE 5.5 (5.0-8.5)
[2016-07-03 21:09] LABS: RBC, URINE 100-200 /hpf (0-3); SQUAMOUS EPITHELIAL CELL URINE 0-5 /hpf (0-5); URINE COLOR YELLOW (YELLW/STRAW)
--- NOTE | 2016-07-03 21:10 | EKG ---
Date Performed: 07/02/2016 Time Performed: 20:05:16 PTAGE: 71 years EKG: Sinus rhythm Normal ECG PREVIOUS TRACING : 05/13/2015 18.48 Compared to prior tracing no significant change DOCTOR: Pola Fan Interpretating Date/Time 07/03/2016 21:08:24
[2016-07-03 21:13] LABS: AMPHETAMINE, URINE NEG (NEG); BARBITURATES, URINE NEG (NEG); COCAINE, URINE NEG (NEG)
[2016-07-03] MEDS: MULTIVITAMIN TAB PO SCH (22:02)
[2016-07-04] VITALS (9 sets, daily range): BP systolic 119–162; BP diastolic 55–85; PULSE 52–79; RESP 20; TEMP 96–97; O2SAT 93–99
[2016-07-04 03:11] LABS: APTT (PATIENT) 44.5 SEC (24.3-30.1)
[2016-07-04] MEDS: SODIUM CHLOR 0.9% 1000 ML INJ 1,000 ML IV SCH (05:07)
[2016-07-04] MEDS: INSULIN ASPART SUPPLEMENTAL SCALE SQ SCH ×4 (06:09→21:03)
[2016-07-04 07:37] LABS: AUTOMATED NEUTROPHIL # 4.7 TH/MM3 (1.8-7.7); BASOPHIL % 0.6 % (0.0-2.0); EOSINOPHIL # 0.3 TH/MM3 (0-0.4); EOSINOPHIL % 4.3 % (0.0-4.0); HEMATOCRIT 38.4 % (39.0-51.0); HEMO FLAGS DIFF FINAL; LYMPH % 25.1 % (9.0-44.0); LYMPHOCYTE # 1.9 TH/MM3 (1.0-4.8); MEAN CELL VOLUME 99.3 FL (80.0-100.0); MEAN CORPUSCULAR HEMOGLOBIN 33.1 PG (27.0-34.0); MEAN CORPUSCULAR HGB CONC 33.3 % (32.0-36.0); MONO % 7.5 % (0.0-8.0); NEUT % 62.5 % (16.0-70.0); PLATELET COUNT 138 TH/MM3 (150-450); RED BLOOD COUNT 3.87 MIL/MM3 (4.50-5.90); RED CELL DISTRIBUTION WIDTH 13.7 % (11.6-17.2); WHITE BLOOD COUNT 7.5 TH/MM3 (4.0-11.0)
[2016-07-04 07:47] LABS: CHLORIDE 109 MEQ/L (98-107); SODIUM (NA) 146 MEQ/L (136-145)
[2016-07-04 07:51] LABS: ANION GAP 8 MEQ/L (5-15); BICARBONATE 29.4 MEQ/L (21.0-32.0); BLOOD UREA NITROGEN 11 MG/DL (7-18)
[2016-07-04 07:54] LABS: ALT (GPT) 20 U/L (12-78); AST (GOT) 13 U/L (15-37); GLOMERULAR FILTRATION RATE 99 ML/MIN (>89)
[2016-07-04 07:56] LABS: TOTAL BILIRUBIN ADULT 0.4 MG/DL (0.2-1.0)
[2016-07-04 07:57] LABS: ALKALINE PHOSPHATASE 86 U/L (45-117)
--- NOTE | 2016-07-04 08:37 | HHI.PR ---
Subjective History of Present Illness Patient feel better no acute issue MRI/ MRA of Brain nothing Acute. Review of Systems Constitutional Constitutional: Fatigue, Weakness Vitals/Results Intake & Output 07/03/16 07/03/16 07/04/16 15:00 23:00 07:00 Intake Total 289 ml 695 ml 714 ml Output Total 450 ml 875 ml Balance -161 ml 695 ml -161 ml Intake Oral 0 ml 240 ml 60 ml IV Total 289 ml 455 ml 654 ml Output Urine Total 450 ml 875 ml # Voids 2 3 # Bowel Movements 0 0 Vital Signs Vital Signs Date Time Temp Pulse Resp B/P Pulse Ox O2 Delivery O2 Flow Rate FiO2 07/04/16 07:54 96.9 63 20 146/75 93 07/04/16 04:00 96.8 59 20 119/55 99 07/04/16 00:00 96.0 54 20 138/65 98 07/03/16 20:17 57 07/03/16 20:05 97 21 07/03/16 20:00 96.0 59 20 140/76 99 07/03/16 16:00 74 07/03/16 16:00 96.3 59 20 117/72 99 07/03/16 12:30 97.7 58 12 119/63 98 07/03/16 12:00 60 CBC/BMP: 07/04/16 0710 07/04/16 0710 Lab Results Laboratory Tests Test 07/03/16 07/03/16 07/03/16 07/04/16 11:05 20:09 20:52 02:50 White Blood Count 7.2 TH/MM3 Red Blood Count 3.87 MIL/MM3 Hemoglobin 12.8 GM/DL Hematocrit 38.0 % Mean Corpuscular Volume 98.2 FL Mean Corpuscular Hemoglobin 33.2 PG Mean Corpuscular Hemoglobin 33.8 % Concent Red Cell Distribution Width 13.4 % Platelet Count 157 TH/MM3 Mean Platelet Volume 7.5 FL Prothrombin Time 11.1 SEC Prothromb Time International 1.0 RATIO Ratio Activated Partial 27.1 SEC 38.9 SEC 44.5 SEC Thromboplast Time Vitamin B12 Level 168 PG/ML Free Thyroxine 1.58 NG/DL Thyroid Stimulating Hormone 3.370 uIU/ML 3rd Gen Urine Color YELLOW Urine Turbidity CLEAR Urine pH 5.5 Urine Specific [place] 1.012 Urine Protein NEG mg/dL Urine Glucose (UA) NEG mg/dL Urine Ketones NEG mg/dL Urine Occult Blood LARGE Urine Nitrite NEG Urine Bilirubin NEG Urine Leukocyte Esterase NEG Urine RBC 100-200 /hpf Urine WBC 3-5 /hpf Urine Squamous Epithelial 0-5 /hpf Cells Urine Opiates Screen NEG Urine Barbiturates Screen NEG Urine Amphetamines Screen NEG Urine Benzodiazepines Screen NEG Urine Cocaine Screen NEG Urine Cannabinoids Screen POS Test 07/04/16 07:10 White Blood Count 7.5 TH/MM3 Red Blood Count 3.87 MIL/MM3 Hemoglobin 12.8 GM/DL Hematocrit 38.4 % Mean Corpuscular Volume 99.3 FL Mean Corpuscular Hemoglobin 33.1 PG Mean Corpuscular Hemoglobin 33.3 % Concent Red Cell Distribution Width 13.7 % Platelet Count 138 TH/MM3 Mean Platelet Volume 7.7 FL Neutrophils (%) (Auto) 62.5 % Lymphocytes (%) (Auto) 25.1 % Monocytes (%) (Auto) 7.5 % Eosinophils (%) (Auto) 4.3 % Basophils (%) (Auto) 0.6 % Neutrophils # (Auto) 4.7 TH/MM3 Lymphocytes # (Auto) 1.9 TH/MM3 Monocytes # (Auto) 0.6 TH/MM3 Eosinophils # (Auto) 0.3 TH/MM3 Basophils # (Auto) 0.0 TH/MM3 CBC Comment DIFF FINAL Differential Comment Prothrombin Time 11.0 SEC Prothromb Time International 1.0 RATIO Ratio Sodium Level 146 MEQ/L Potassium Level 4.0 MEQ/L Chloride Level 109 MEQ/L Carbon Dioxide Level 29.4 MEQ/L Anion Gap 8 MEQ/L Blood Urea Nitrogen 11 MG/DL Creatinine 0.77 MG/DL Estimat Glomerular Filtration 99 ML/MIN Rate Random Glucose 132 MG/DL Calcium Level 8.2 MG/DL Total Bilirubin 0.4 MG/DL Aspartate Amino Transf 13 U/L (AST/SGOT) Alanine Aminotransferase 20 U/L (ALT/SGPT) Alkaline Phosphatase 86 U/L Total Protein 5.9 GM/DL Albumin 2.8 GM/DL Physical Exam General General Appearance: Well Developed, Well Nourished, No Acute Distress, Comfortable Eyes Eye Exam: Pupils Equal, Pupils Reactive, Sclera White, Extraocular Movement Intact Throat Throat Exam: Oral Mucosa [place] & Moist, Oral Pharynx Normal Neck Neck Exam: Neck Supple, Trachea Midline Pulmonary Resp Exam: Clear Bilaterally, Breath Sounds Equal Cardiology CV Exam: Regular, Normal Sinus Rhythm Gastrointestinal/Abdomen GI Exam: Soft, Non-Tender, Bowel Sounds Present Musculoskeletal MS Exam: Normal Gait, Normal Tone Integumentary Skin Exam: Clear, Warm, Dry, Intact Extremeties Extremities Exam: No Edema Neurologic Neuro Exam: Alert, Awake, Oriented, Speech Clear, Moving All Extremities, No Focal Deficits Psychiatric Psych Exam: Appropriate Responses VTE Prophylaxis VTE Prophylaxis Device: SCDs PUD Prophylasis PUD Prophylaxis: Protonix Assessment/Plan Assessment/Plan ASSESSMENT/PLAN 1. This is a 71-year-old male who came to the ER diagnosed with right upper extremity numbness and weakness and dysarthria, which is totally resolved, most likely secondary to TIA. The patient is on coumadin and also heparin gtt. Neurology input noted. Neuro check every 4 hours. Further recommendation per neurology. 2. Diabetes mellitus. ADA 1800 calorie diet. NovoLog low-dose, sliding scale. Check blood sugars a.c. and h.s. Continue home medication. Will monitor blood sugar closely. 3. History of BPH. Continue with Flomax 0.4 mg twice a day. 4. History of hypothyroidism. Continue with levothyroxine 25 mcg p.o. daily. 5. Hypertension. Continue home medication. Monitor blood pressure. 6. Hyperlipidemia. Continue Lipitor 80 mg p.o. at bedtime. 7. Arthritis. Continue home medication. 8. History of coronary artery disease. Continue home medication. 9. History of for coronary stent placement in the past. 10. 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 Checking MRI of spine 11. History of atrial fibrillation. The patient was on Xarelto before and got blood per rectum as well as hematuria and bleeding gums which has been stopped. now started on Heparin gtt and coumadin. 12. History of abdominal aortic aneurysm repair, coronary artery stenting, cataract surgery and tonsillectomy in the past. 13. DVT prophylaxis, on heparin gtt. 14. GI prophylaxis, Protonix 40 mg p.o. daily. Check CBC with diff CMP in AM. We are going to manage the patient on a daily basis and make recommendation on a daily basis. Discussed Condition with: Patient Charlie Boyd MD Jul 04, 2016 08:37
[2016-07-04] MEDS: HEPARIN-D5W INJ 250 ML IV SCH (09:06)
[2016-07-04] MEDS: SODIUM CHLORIDE 0.9% FLUSH 10 ML FLUSH IV FLUSH SCH ×2 (09:08→21:03)
[2016-07-04] MEDS: CYANOCOBALAMIN 1000 MCG/ML VIAL IM SCH (09:08)
[2016-07-04] MEDS: MULTIVITAMIN TAB PO SCH (09:08)
--- NOTE | 2016-07-04 09:17 | HHI.PR ---
Objective Vital Signs Date Time Temp Pulse Resp B/P Pulse Ox O2 Delivery O2 Flow Rate FiO2 07/04/16 07:54 96.9 63 20 146/75 93 07/04/16 04:00 96.8 59 20 119/55 99 07/04/16 00:00 96.0 54 20 138/65 98 07/03/16 20:17 57 07/03/16 20:05 97 21 07/03/16 20:00 96.0 59 20 140/76 99 07/03/16 16:00 74 07/03/16 16:00 96.3 59 20 117/72 99 07/03/16 12:30 97.7 58 12 119/63 98 07/03/16 12:00 60 I/O 07/03/16 07/03/16 07/03/16 07/04/16 07/04/16 07/04/16 07:00 15:00 23:00 07:00 15:00 23:00 Intake Total 289 ml 289 ml 695 ml 714 ml Output Total 500 ml 450 ml 875 ml Balance -211 ml -161 ml 695 ml -161 ml Intake Oral 0 ml 0 ml 240 ml 60 ml IV Total 289 ml 289 ml 455 ml 654 ml Output Urine Total 500 ml 450 ml 875 ml # Voids 2 3 # Bowel Movements 0 0 Result Diagram: 07/04/16 0710 07/04/16 0710 Assessment and Plan Assessment and Plan imp no new spells i dw nurse on coumadin no bleeding noted by nurse but he thought he had some in urine med team plz follow daily inr he needs anticoag with afib and tia major mri/a/a neg no cva echo la 41 b12 low shots ordered he can dc when inr 2-2.5 mri spine make sure no mets from ca today call neuro personal injury law specialist over weekend if problem consider urology and gi with hx bleeding folow stool Genaro Bedoya MD Jul 04, 2016 09:17
[2016-07-04] MEDS: ACETAMINOPHEN 325 MG TAB PO PRN ×2 (09:24→21:09)
[2016-07-04 09:59] LABS: APTT (PATIENT) 51.1 SEC (24.3-30.1)
[2016-07-04 14:58] LABS: BLOOD, URINE LARGE (NEG); GLUCOSE,URINE NEG (NEG); KETONE, URINE NEG (NEG); NITRITE,URINE NEG (NEG); PH, URINE 6.5 (5.0-8.5)
[2016-07-04 15:10] LABS: RBC, URINE 100-200 /hpf (0-3); URINE COLOR ORANGE (YELLW/STRAW)
[2016-07-04 15:11] LABS: COMMENT (UR) CULTURE INDICATED; CULTURE IF INDICATED CULTURE INDICATED; SQUAMOUS EPITHELIAL CELL URINE 0-5 /hpf (0-5)
[2016-07-04] MEDS ORDERED: WARFARIN SOD 2 MG TAB PO ONE (16:00)
[2016-07-04] MEDS: cefTRIAXone 1,000 MG/NS 100 ML IV SCH ×2 (17:34)
--- NOTE | 2016-07-04 17:41 | RADHPO ---
EXAM DATE/TIME: 07/04/2016 15:59 [facility] COMPARISON: No previous studies available for comparison. INDICATIONS : Cord compression. MEDICAL HISTORY : Carcinoma, prostate. Hypertension. Diabetes mellitus type 2. SURGICAL HISTORY : Discectomy, lumbar. Coronary artery stent. Angioplasty. ENCOUNTER: Initial ACUITY: 2 day PAIN SCORE: 0/10 LOCATION: neck. TECHNIQUE: Multiplanar, multisequence MRI examination of the cervical spine was performed. FINDINGS: Alignment: Craniocervical and cervical vertebral body alignment are intact. Osseous structures and facet joints: Vertebral body height is well-maintained. There is no evidence of compression deformity, bone marrow edema or destructive changes. Facet joints are intact and in satisfactory aligned. There is no signif icant arthropathy. Intervertebral disc spaces: Mild degenerative disc disease is noted. C2-3: Unremarkable. C3-4: Mild degenerative disc disease with marginal disc osteophyte complex. There is no evidence of s oft disc extrusion, central spinal stenosis or significant foraminal encroachment. C4-5: Unremarkable. C5-6: Mild degenerative disc disease with minimal posterior annular bulging. No disc herniation, fora duglas encroachment spinal stenosis. C6-7: Degenerative disc disease with marginal spurring. There is mild bilateral foraminal encroachmen t. There is no evidence of disc herniation or significant spinal stenosis. C7-T1: Unremarkable. Neurologic structures: Cervical spinal cord is normal caliber and signal intensity. There are no epidural, intradural or int ramedullary abnormalities. CONCLUSION: Degenerative disease without evidence of epidural disc herniation. Degenerative disc changes at C6-7 with mild bilateral foraminal encroachment due to marginal spurring . Mild broad-based disc osteophyte complex at C3-4 without significant from foraminal encroachment or s tova stenosis. No other significant abnormality. Rene Macias MD on July 04, 2016 at 17:32 Board Certified Radiologist. This report was verified electronically.
--- NOTE | 2016-07-04 18:05 | RADHPO ---
EXAM DATE/TIME: 07/04/2016 15:59 [facility] COMPARISON: No previous studies available for comparison. INDICATIONS : Cord compression. MEDICAL HISTORY : Carcinoma, prostate. Hypertension. Diabetes mellitus type 2. SURGICAL HISTORY : Angioplasty. Discectomy, lumbar. Coronary artery stent. ENCOUNTER: Initial ACUITY: 2 day PAIN SCORE: 0/10 LOCATION: back TECHNIQUE: Multiplanar multisequence MRI of the thoracic spine was performed. FINDINGS: VERTEBRA: Normal vertebral body height. Homogeneous marrow signal. ALIGNMENT: Normal. CORD: Normal position and configuration. T1-T2: Normal. T2-T3: The thecal sac has a normal diameter. No evidence of disc bulge or protrusion. T3-T4: The thecal sac has a normal diameter. No evidence of disc bulge or protrusion. T4-T5: Tiny central disc protrusion minimally indenting thecal sac. No canal or foraminal compromise. T5-T6: The thecal sac has a normal diameter. No evidence of disc bulge or protrusion. T6-T7: The thecal sac has a normal diameter. No evidence of disc bulge or protrusion. T7-T8: The thecal sac has a normal diameter. No evidence of disc bulge or protrusion. T8-T9: The thecal sac has a normal diameter. No evidence of disc bulge or protrusion. T9-T10: The thecal sac has a normal diameter. No evidence of disc bulge or protrusion. T10-T11: The thecal sac has a normal diameter. No evidence of disc bulge or protrusion. T11-T12: The thecal sac has a normal diameter. No evidence of disc bulge or protrusion. T12-L1: The thecal sac has a normal diameter. No evidence of disc bulge or protrusion. CONCLUSION: Tiny central disc protrusion at T4-5. Ricky Conley MD on July 04, 2016 at 18:02 Board Certified Radiologist. This report was verified electronically.
--- NOTE | 2016-07-04 18:09 | RADHPO ---
EXAM DATE/TIME: 07/04/2016 15:59 [facility] COMPARISON: No previous studies available for comparison. INDICATIONS : Cord compression. MEDICAL HISTORY : Carcinoma, prostate. Diabetes mellitus type 2. Hypertension. SURGICAL HISTORY : Coronary artery stent. Angioplasty. Discectomy, lumbar. ENCOUNTER: Initial ACUITY: 2 day PAIN SCORE: 0/10 LOCATION: back TECHNIQUE: Multiplanar multisequence MRI of the lumbar spine was performed without contrast. FINDINGS: The most caudal appearing lumbar vertebra is numbered as L5. VERTEBRAE: Homogeneous signal. Normal alignment. CONUS: Normal level and configuration. T12-L1: The thecal sac has a normal diameter. No evidence of disc bulge or protrusion. The neural foramina are patent bilaterally. L1-L2: The thecal sac has a normal diameter. No evidence of disc bulge or protrusion. The neural foramina are patent bilaterally. L2-L3: Slight annular disc bulge. No significant protrusion, canal or foraminal stenosis. L3-L4: Mild disc dehydration and loss of disc height. Minimal broad dorsal protrusion without significant ca nal or foraminal compromise. L4-L5: Mild disc dehydration and moderate loss of disc height. Slight annular bulge. No significant canal or foraminal compromise. L5-S1: Mild disc dehydration and slight annular disc bulge. No significant protrusion. Canal and foramina ar e satisfactory. CONCLUSION: Mild disc abnormalities at multiple levels, none producing any significant canal or foraminal comprom fatmata Conley MD on July 04, 2016 at 18:03 Board Certified Radiologist. This report was verified electronically.
[2016-07-05] VITALS (7 sets, daily range): BP systolic 120–169; BP diastolic 64–91; PULSE 64–107; RESP 14–20; TEMP 97–97.7; O2SAT 95–99
[2016-07-05] MEDS: ACETAMINOPHEN 325 MG TAB PO PRN ×2 (06:03→20:48)
[2016-07-05] MEDS: INSULIN ASPART SUPPLEMENTAL SCALE SQ SCH ×4 (06:03→20:52)
[2016-07-05 07:05] LABS: AUTOMATED NEUTROPHIL # 4.9 TH/MM3 (1.8-7.7); BASOPHIL % 0.4 % (0.0-2.0); EOSINOPHIL # 0.3 TH/MM3 (0-0.4); EOSINOPHIL % 3.9 % (0.0-4.0); HEMATOCRIT 39.2 % (39.0-51.0); HEMO FLAGS DIFF FINAL; LYMPH % 17.8 % (9.0-44.0); LYMPHOCYTE # 1.2 TH/MM3 (1.0-4.8); MEAN CELL VOLUME 99.6 FL (80.0-100.0); MEAN CORPUSCULAR HGB CONC 33.1 % (32.0-36.0); MONO % 7.3 % (0.0-8.0); NEUT % 70.6 % (16.0-70.0); PLATELET COUNT 155 TH/MM3 (150-450); RED BLOOD COUNT 3.94 MIL/MM3 (4.50-5.90); RED CELL DISTRIBUTION WIDTH 13.6 % (11.6-17.2); WHITE BLOOD COUNT 6.9 TH/MM3 (4.0-11.0)
[2016-07-05 07:11] LABS: APTT (PATIENT) 25.7 SEC (24.3-30.1); CHLORIDE 108 MEQ/L (98-107); PROTHROMBIN TIME - PATIENT 11.4 SEC (9.8-11.6); SODIUM (NA) 146 MEQ/L (136-145)
[2016-07-05 07:18] LABS: ANION GAP 9 MEQ/L (5-15); BICARBONATE 28.8 MEQ/L (21.0-32.0); BLOOD UREA NITROGEN 10 MG/DL (7-18)
[2016-07-05 07:21] LABS: ALT (GPT) 19 U/L (12-78); AST (GOT) 14 U/L (15-37); GLOMERULAR FILTRATION RATE 90 ML/MIN (>89)
[2016-07-05 07:22] LABS: TOTAL BILIRUBIN ADULT 0.4 MG/DL (0.2-1.0)
[2016-07-05 07:24] LABS: ALKALINE PHOSPHATASE 82 U/L (45-117)
[2016-07-05] MEDS: MULTIVITAMIN TAB PO SCH (09:10)
[2016-07-05] MEDS: SODIUM CHLORIDE 0.9% FLUSH 10 ML FLUSH IV FLUSH SCH ×2 (09:10→20:47)
[2016-07-05] MEDS: CYANOCOBALAMIN 1000 MCG/ML VIAL IM SCH (09:10)
--- NOTE | 2016-07-05 09:46 | HHI.PR ---
Subjective History of Present Illness Patient feel better no acute issue MRI/ MRA of Brain nothing Acute. MRI of whole spine discussed with patient. have Hematuria Heparin gtt stopped and consulted urology have h/o GI Bleed while on Xarelto ..GI Consulted. checking FOBT. d/w at bed side patient wants to go home. Review of Systems Constitutional Constitutional: Fatigue, Weakness Vitals/Results Intake & Output 07/04/16 07/04/16 07/05/16 15:00 23:00 07:00 Intake Total 810 ml 240 ml Output Total 150 ml 500 ml Balance 810 ml 90 ml -500 ml Intake Oral 810 ml 240 ml Output Urine Total 150 ml 500 ml # Voids 2 # Bowel Movements 1 Vital Signs Vital Signs Date Time Temp Pulse Resp B/P Pulse Ox O2 Delivery O2 Flow Rate FiO2 07/05/16 08:43 97.1 64 15 142/77 97 07/05/16 07:30 18 07/05/16 04:16 97.0 72 14 150/67 95 07/05/16 00:16 97.1 74 18 141/66 95 07/04/16 20:49 97.0 77 20 162/84 99 07/04/16 20:00 79 07/04/16 15:51 96.8 73 20 142/76 95 07/04/16 12:00 96.4 72 20 144/85 98 CBC/BMP: 07/05/16 0650 07/05/16 0650 Lab Results Laboratory Tests Test 07/04/16 07/05/16 14:45 06:50 Urine Color ORANGE Urine Turbidity CLOUDY Urine pH 6.5 Urine Specific [place] 1.013 Urine Protein 30 mg/dL Urine Glucose (UA) NEG mg/dL Urine Ketones NEG mg/dL Urine Occult Blood LARGE Urine Nitrite NEG Urine Bilirubin NEG Urine Leukocyte Esterase NEG Urine RBC 100-200 /hpf Urine WBC 9-14 /hpf Urine Squamous Epithelial 0-5 /hpf Cells Microscopic Urinalysis Comment CULTURE INDICATED White Blood Count 6.9 TH/MM3 Red Blood Count 3.94 MIL/MM3 Hemoglobin 13.0 GM/DL Hematocrit 39.2 % Mean Corpuscular Volume 99.6 FL Mean Corpuscular Hemoglobin 33.0 PG Mean Corpuscular Hemoglobin 33.1 % Concent Red Cell Distribution Width 13.6 % Platelet Count 155 TH/MM3 Mean Platelet Volume 7.4 FL Neutrophils (%) (Auto) 70.6 % Lymphocytes (%) (Auto) 17.8 % Monocytes (%) (Auto) 7.3 % Eosinophils (%) (Auto) 3.9 % Basophils (%) (Auto) 0.4 % Neutrophils # (Auto) 4.9 TH/MM3 Lymphocytes # (Auto) 1.2 TH/MM3 Monocytes # (Auto) 0.5 TH/MM3 Eosinophils # (Auto) 0.3 TH/MM3 Basophils # (Auto) 0.0 TH/MM3 CBC Comment DIFF FINAL Differential Comment Prothrombin Time 11.4 SEC Prothromb Time International 1.0 RATIO Ratio Activated Partial 25.7 SEC Thromboplast Time Sodium Level 146 MEQ/L Potassium Level 4.0 MEQ/L Chloride Level 108 MEQ/L Carbon Dioxide Level 28.8 MEQ/L Anion Gap 9 MEQ/L Blood Urea Nitrogen 10 MG/DL Creatinine 0.84 MG/DL Estimat Glomerular Filtration 90 ML/MIN Rate Random Glucose 127 MG/DL Calcium Level 8.2 MG/DL Total Bilirubin 0.4 MG/DL Aspartate Amino Transf 14 U/L (AST/SGOT) Alanine Aminotransferase 19 U/L (ALT/SGPT) Alkaline Phosphatase 82 U/L Total Protein 6.1 GM/DL Albumin 2.9 GM/DL Microbiology Microbiology 07/04/16 Stool Occult Blood (NITIN) - Final, Complete HEMOCCULT POSITIVE 07/04/16 Urine Culture, Received Pending 07/04/16 Stool Occult Blood (NITIN) - Final, Complete HEMOCCULT NEGATIVE Physical Exam General General Appearance: Well Developed, Well Nourished, No Acute Distress, Comfortable Eyes Eye Exam: Pupils Equal, Pupils Reactive, Sclera White, Extraocular Movement Intact Throat Throat Exam: Oral Mucosa [place] & Moist, Oral Pharynx Normal Neck Neck Exam: Neck Supple, Trachea Midline Pulmonary Resp Exam: Clear Bilaterally, Breath Sounds Equal Cardiology CV Exam: Regular, Normal Sinus Rhythm Gastrointestinal/Abdomen GI Exam: Soft, Non-Tender, Bowel Sounds Present Musculoskeletal MS Exam: Normal Gait, Normal Tone Integumentary Skin Exam: Clear, Warm, Dry, Intact Extremeties Extremities Exam: No Edema Neurologic Neuro Exam: Alert, Awake, Oriented, Speech Clear, Moving All Extremities, No Focal Deficits Psychiatric Psych Exam: Appropriate Responses VTE Prophylaxis VTE Prophylaxis Device: SCDs PUD Prophylasis PUD Prophylaxis: Protonix Assessment/Plan Assessment/Plan ASSESSMENT/PLAN 1. This is a 71-year-old male who came to the ER diagnosed with right upper extremity numbness and weakness and dysarthria, which is totally resolved, most likely secondary to TIA. The patient is on coumadin Neurology input noted. Neuro check every 4 hours. Further recommendation per neurology. 2. Diabetes mellitus. ADA 1800 calorie diet. NovoLog low-dose, sliding scale. Check blood sugars a.c. and h.s. Continue home medication. Will monitor blood sugar closely. 3. History of BPH. Continue with Flomax 0.4 mg twice a day. 4. History of hypothyroidism. Continue with levothyroxine 25 mcg p.o. daily. 5. Hypertension. Continue home medication. Monitor blood pressure. 6. Hyperlipidemia. Continue Lipitor 80 mg p.o. at bedtime. 7. Arthritis. Continue home medication. 8. History of coronary artery disease. Continue home medication. 9. History of for coronary stent placement in the past. 10. 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 Checked MRI of spine discussed with patient. 11. History of atrial fibrillation. The patient was on Xarelto before and got blood per rectum as well as hematuria and bleeding gums which has been stopped. now on coumadin. 12. History of abdominal aortic aneurysm repair, coronary artery stenting, cataract surgery and tonsillectomy in the past. 13. DVT prophylaxis, on heparin gtt. 14. GI prophylaxis, Protonix 40 mg p.o. daily. 15. Hematuria Heparin gtt stopped and consulted urology 16. h/o GI Bleed while on Xarelto ..GI Consulted. checking FOBT. Check CBC with diff CMP in AM. We are going to manage the patient on a daily basis and make recommendation on a daily basis. Discussed Condition with: Patient, Spouse Charlie Boyd MD Jul 05, 2016 09:46
[2016-07-05] MEDS ORDERED: WARFARIN SOD 5 MG TAB PO SCH (16:00)
[2016-07-05] MEDS: cefTRIAXone 1,000 MG/NS 100 ML IV SCH ×2 (17:47)
--- NOTE | 2016-07-05 20:28 | MB ---
cc: TORREY GALLO MD DATE OF CONSULTATION: 07/05/2016. REASON FOR CONSULTATION: 1. Gross hematuria 2. Metastatic prostate cancer. HISTORY OF PRESENT ILLNESS: The patient is a 71-year-old male with metastatic prostate cancer to the spine and lymph nodes currently on Taxotere with Dr. Gonsalez. He was admitted to the [facility] after complaining of numbness and weakness in his right upper extremity which lasted for approximately three hours. He had had a prior similar episode 35 years ago. He had recently been on Xarelto in the past per his senior government program analyst due to a history of atrial fibrillation; however, he developed gross hematuria, bleeding from his nose and from his rectum. He was told to stop his Xarelto. Eight days later he developed this numbness and tingling and slurred speech in his right arm. By the time he was brought to the emergency room, it had resolved. However, he was started on a heparin drip and he again developed blood in his urine. Urology is consulted for this gross hematuria. He denies dysuria, urgency, frequency, fevers, chills, flank pain, abdominal pain, nausea or vomiting. After developing hematuria here in the hospital, the heparin drip was then stopped and he was switched over to Coumadin. Currently he is urinating yellow urine. He also feels like he is emptying his bladder. He denies a history of kidney stones or a history of urinary tract infections. He has just gone through one cycle of Taxotere with Dr. Gonsalez. His urologist is Dr. Vizcaino, whom he sees on a regular basis. He has also been on Xtandi and Zytiga for his metastatic prostate cancer as well. He denies any unexplained weight loss or any unusual bone or back pain at this time. He also denies any urinary or stool incontinence or any numbness in his lower extremities. PAST MEDICAL HISTORY: 1. Metastatic prostate cancer. 2. Hyperlipidemia. 3. Diabetes. 4. Hypertension. 5. Pneumonia. 6. Abdominal aortic aneurysm. 7. Urinary retention. 8. TIA. PAST SURGICAL HISTORY: 1. He is status post cystoscopy. 2. TURP. 3. Bilateral cataract surgery. 4. Tonsillectomy. 5. Coronary artery angioplasty. SOCIAL HISTORY: He denies any smoking or illicit drugs. He occasionally drinks alcohol. He lives at home with his . 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 FAMILY HISTORY: Negative for urolithiasis or malignancies. ALLERGIES: 1. CODEINE. 2. PENICILLIN. MEDICATIONS: Medications include: 1. Flomax 0.4 milligrams p.o. twice a day. 2. Eligard. 3. XGEVA. 4. Prednisone. 5. Zytiga. 6. Zofran. 7. Metformin. 8. Metoprolol. 9. Synthroid. 10. Lisinopril. 11. Lipitor. 12. Calcium. REVIEW OF SYSTEMS: See the history of present illness. All systems reviewed and otherwise were negative. PHYSICAL EXAMINATION: VITAL SIGNS: Temperature is 97, pulse is 60, respirations 18, blood pressure 159/77, satting 97% on room air. GENERAL: In general, he is alert and oriented times three and in no apparent distress, pleasant, cooperative gentleman who appears his stated age. HEAD, EYES, EARS, NOSE, THROAT: Head is normocephalic, atraumatic. Extraocular muscles intact. Pupils equal, round and reactive to light. No scleral icterus. His oral mucosa is moist. NECK: The neck is supple. Trachea is midline. No jugular venous distention. RESPIRATORY: Clear to auscultation bilaterally. No wheezes, rales or rhonchi. HEART: Regular rate and rhythm. No murmurs, rubs or gallops. ABDOMEN: The abdomen is soft, nontender and nondistended. Positive bowel sounds. EXTREMITIES: No cyanosis, clubbing or edema. They are nontender. Full range of motion of all extremities. GENITOURINARY: His penis is uncircumcised. Testes are descended bilaterally, normal size and consistency without mass. RECTAL: Not examined at this time. SKIN: Skin is warm and dry. No ulcers or rashes. PSYCHIATRIC: Normal affect. Normal mood. NEUROLOGIC: Strength is 5/5 in all four extremities. Cranial nerves II through XII intact. LABORATORY DATA: White count 6.9, hemoglobin 13.0, hematocrit 39.2, platelet count 155,000. Sodium 146, potassium 4.0, chloride 108, bicarb 28.8, BUN 10, creatinine 0.84, glucose 127, calcium 8.2. Urine showed large blood, 1 to 20 red blood cells, 9 to 14 white blood cells, negative for nitrates. Culture is currently pending. IMAGING STUDIES: MRI of his cervical, thoracic and lumbar spine was reviewed with no evidence of metastatic disease. Some degenerative disc changes were seen. ASSESSMENT AND PLAN: The patient is a 71-year-old male with metastatic prostate cancer currently on Taxotere with recurrent gross hematuria which has now resolved. PLAN: 1. Okay to continue Coumadin for anticoagulation purposes as he is voiding well and his hemoglobin is stable. 2. From the urology standpoint, it is okay to discharge home and followup with his urologist, Dr. Vizcaino, as well as Dr. Gonsalez as an outpatient to continue his prostate cancer treatment. 3. If his hematuria recurs, then cystoscopy could be performed if needed. Thank you for this consult. Please call with any questions. I am available as needed. MD YOSEF Dutton/TANG /7:40 PM /8:00 PM
[2016-07-06] VITALS: BP 145/69; PULSE 85; RESP 20; TEMP 97.9; O2SAT 97
[2016-07-06 01:15] VITALS: PULSE 164
[2016-07-06] MEDS ORDERED: ATORVASTATIN 40 MG TAB PO SCH (01:45)
[2016-07-06] MEDS: PROPAFENONE HCL 150 MG TAB PO SCH ×2 (01:51→06:56)
[2016-07-06 03:00] VITALS: PULSE 84
[2016-07-06 04:00] VITALS: BP 121/84; PULSE 98; RESP 19; TEMP 97.4; O2SAT 96
[2016-07-06] MEDS ORDERED: LEVOTHYROXINE SODIUM 25 MCG TAB PO SCH (06:00)
[2016-07-06] MEDS: INSULIN ASPART SUPPLEMENTAL SCALE SQ SCH (06:59)
[2016-07-06 08:00] VITALS: BP 156/94; PULSE 83; PULSE 87; RESP 18; TEMP 98.5; O2SAT 96
[2016-07-06 08:41] LABS: HEMATOCRIT 38.8 % (39.0-51.0); MEAN CELL VOLUME 99.6 FL (80.0-100.0); MEAN CORPUSCULAR HEMOGLOBIN 33.1 PG (27.0-34.0); MEAN CORPUSCULAR HGB CONC 33.2 % (32.0-36.0); PLATELET COUNT 164 TH/MM3 (150-450); RED BLOOD COUNT 3.89 MIL/MM3 (4.50-5.90); RED CELL DISTRIBUTION WIDTH 14.2 % (11.6-17.2); REVIEW FLAG FINAL; WHITE BLOOD COUNT 6.3 TH/MM3 (4.0-11.0)
[2016-07-06 08:52] LABS: INTERNATIONAL NORMALIZED RATIO 1.3 RATIO
[2016-07-06] MEDS ORDERED: TAMSULOSIN HCL 0.4 MG CAP PO SCH (09:00)
[2016-07-06] MEDS ORDERED: LISINOPRIL 5 MG TAB PO SCH (09:00)
[2016-07-06] MEDS ORDERED: METOPROLOL SUCCINATE 50 MG EXTENDED RELEASE TAB PO SCH (09:00)
[2016-07-06] MEDS: MULTIVITAMIN TAB PO SCH (09:45)
[2016-07-06] MEDS ORDERED: CYAN100017 PO (09:53)
[2016-07-06] MEDS ORDERED: COUM5TAB PO (09:53)
[2016-07-06] MEDS ORDERED: CEFT250T8 PO (09:55)
--- NOTE | 2016-07-06 09:56 | HHI.PR ---
Subjective History of Present Illness Patient feel better no acute issue Hematuria resolved and urology input noted ok to DC home per urology, have h/o GI Bleed while on Xarelto ..GI input noted...d/w Dr Gomez checking FOBT. d/w at bed side patient wants to go home...ok to dc home today. Review of Systems Constitutional Constitutional: Fatigue, Weakness Vitals/Results Intake & Output 07/05/16 07/05/16 07/06/16 15:00 23:00 07:00 Intake Total 750 ml 120 ml 720 ml Balance 750 ml 120 ml 720 ml Intake Oral 750 ml 120 ml 720 ml # Voids 4 2 3 # Bowel Movements 0 0 Vital Signs Vital Signs Date Time Temp Pulse Resp B/P Pulse Ox O2 Delivery O2 Flow Rate FiO2 07/06/16 08:00 83 07/06/16 08:00 98.5 87 18 156/94 96 07/06/16 04:00 97.4 98 19 121/84 96 07/06/16 03:00 84 07/06/16 01:15 164 07/06/16 00:00 97.9 85 20 145/69 97 07/05/16 20:00 97.3 107 20 169/91 97 07/05/16 20:00 85 07/05/16 16:00 97.0 68 18 159/77 97 07/05/16 12:53 97.7 88 15 120/64 99 CBC/BMP: 07/06/16 0758 07/05/16 0650 Lab Results Laboratory Tests Test 07/06/16 07:58 White Blood Count 6.3 TH/MM3 Red Blood Count 3.89 MIL/MM3 Hemoglobin 12.9 GM/DL Hematocrit 38.8 % Mean Corpuscular Volume 99.6 FL Mean Corpuscular Hemoglobin 33.1 PG Mean Corpuscular Hemoglobin 33.2 % Concent Red Cell Distribution Width 14.2 % Platelet Count 164 TH/MM3 Mean Platelet Volume 7.8 FL Prothrombin Time 14.0 SEC Prothromb Time International 1.3 RATIO Ratio Physical Exam General General Appearance: Well Developed, Well Nourished, No Acute Distress, Comfortable Eyes Eye Exam: Pupils Equal, Pupils Reactive, Sclera White, Extraocular Movement Intact Throat Throat Exam: Oral Mucosa [place] & Moist, Oral Pharynx Normal Neck Neck Exam: Neck Supple, Trachea Midline Pulmonary Resp Exam: Clear Bilaterally, Breath Sounds Equal Cardiology CV Exam: Regular, Normal Sinus Rhythm Gastrointestinal/Abdomen GI Exam: Soft, Non-Tender, Bowel Sounds Present Musculoskeletal MS Exam: Normal Gait, Normal Tone Integumentary Skin Exam: Clear, Warm, Dry, Intact Extremeties Extremities Exam: No Edema Neurologic Neuro Exam: Alert, Awake, Oriented, Speech Clear, Moving All Extremities, No Focal Deficits Psychiatric Psych Exam: Appropriate Responses VTE Prophylaxis VTE Prophylaxis Device: SCDs PUD Prophylasis PUD Prophylaxis: Protonix Assessment/Plan Assessment/Plan ASSESSMENT/PLAN 1. This is a 71-year-old male who came to the ER diagnosed with right upper extremity numbness and weakness and dysarthria, which is totally resolved, most likely secondary to TIA. The patient is on coumadin Neurology input noted. Neuro check every 4 hours. Further recommendation per neurology. 2. Diabetes mellitus. ADA 1800 calorie diet. NovoLog low-dose, sliding scale. Check blood sugars a.c. and h.s. Continue home medication. Will monitor blood sugar closely. 3. History of BPH. Continue with Flomax 0.4 mg twice a day. 4. History of hypothyroidism. Continue with levothyroxine 25 mcg p.o. daily. 5. Hypertension. Continue home medication. Monitor blood pressure. 6. Hyperlipidemia. Continue Lipitor 80 mg p.o. at bedtime. 7. Arthritis. Continue home medication. 8. History of coronary artery disease. Continue home medication. 9. History of for coronary stent placement in the past. 10. 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 Checked MRI of spine discussed with patient. 11. History of atrial fibrillation. The patient was on Xarelto before and got blood per rectum as well as hematuria and bleeding gums which has been stopped. now on coumadin. 12. History of abdominal aortic aneurysm repair, coronary artery stenting, cataract surgery and tonsillectomy in the past. 13. DVT prophylaxis, on heparin gtt. 14. GI prophylaxis, Protonix 40 mg p.o. daily. 15. Hematuria Heparin off gtt and urology input noted ok to DC home per urology 16. h/o GI Bleed while on Xarelto .. GI input noted...d/w Dr Gomez ok to dc home today. f/u with PCP/ GI/ Urology 1 week. check INR Daily. Discussed Condition with: Patient Charlie Boyd MD Jul 06, 2016 09:56
[2016-07-06] MEDS: SODIUM CHLORIDE 0.9% FLUSH 10 ML FLUSH IV FLUSH SCH (09:57)
[2016-07-06] MEDS ORDERED: CYANOCOBALAMIN 1,000 MCG TAB PO SCH (10:00)
--- NOTE | 2016-07-06 21:09 | MD ---
cc: CHARLIE MARCH MD ADMISSION DATE: 07/02/2016 DISCHARGE DATE: 07/06/2016 DISPOSITION: Okay to discharge the patient home. CONDITION AT THE TIME OF DISCHARGE: Satisfactory. DISCHARGE ACTIVITY: As tolerated. DISCHARGE DIET: Cardiac diet. ADA 1800-calorie diet. ALLERGIES: 1. PENICILLIN. 2. CODEINE. MEDICATIONS: Discharge medications include: 1. Ceftin 250 milligrams twice a day for ten days. 2. Cyanocobalamin 1000 micrograms p.o. daily. 3. Coumadin 5 milligrams p.o. daily. SPECIAL INSTRUCTIONS: The patient was advised to check the PT and INR daily for five days and give the report to the primary care physician. The patient verbalized an understanding. 4. Zytiga 250 milligrams p.o. daily. 5. Lipitor 80 milligrams p.o. daily. 6. Calcium carbonate with vitamin D 500/400 units p.o. daily. 7. Xgeva injection 120 milligrams subcutaneous as directed. 8. Hydromorphone 1 milligram q. 4 hours. 9. Eligard 22.5 milligrams injection ____ as directed. 10. Levothyroxine 25 micrograms p.o. daily. 11. Lisinopril 5 milligrams p.o. daily. 12. Metformin 500 milligrams p.o. three times a day. 13. Metoprolol succinate ER 24-hours 50 milligrams p.o. daily. 14. Zofran 8 milligrams p.o. three times a day. 15. Prednisone 5 milligrams p.o. daily. 16. Propafenone 150 milligrams p.o. q. 8-hour. 17. Flomax 0.4 milligrams p.o. daily. FOLLOW UP: The patient was to follow with the primary care physician, gastroenterology, neurology and urology within a week. ADMITTING DIAGNOSIS: 1. Right upper extremity numbness and weakness and dysarthria, which resolved within 24 hours, most likely a TIA. The patient was on Xarelto before and had a GI bleed and hematuria and Xarelto was stopped. The patient was started back on Coumadin. The patient was on heparin but it caused hematuria so stopped the heparin. 2. Diabetes mellitus. 3. Benign prostate hypertrophy. 4. Hypothyroidism. 5. Hypertension. 6. Hyperlipidemia. 7. History of arthritis. 8. History of coronary artery disease. 9. History of prostate cancer. 10. History of atrial fibrillation. 11. History of abdominal aortic aneurysm repair. 12. Coronary artery stenting. 13. Cataract surgery. 14. Tonsillectomy. 15. Hematuria after giving heparin GTT. Heparin GGT was stopped. Hematuria resolved. Urology has seen the patient and he needs to follow up with urology in one week. 16. History of GI bleed while on Xarelto. GI was consulted. Discussed with Dr. Rivera. Okay to discharge per Dr. Rivera. HOSPITAL COURSE: This is a 71-year-old male admitted with the above-mentioned symptoms and complaints. MRI and MRA of the brain are negative. MRI of the cervical spine and thoracic and lumbar spine was done and showed nothing acute. The patient remained stable. No acute event happened. The patient had anemia with hemoglobin of 12.9 with hematocrit of 38.8. The patient had mild hyponatremia. Sodium was 146. Carbon dioxide was high at 108. Hemoglobin A1c was 7.3. PT 14.0 and INR 1.3 at the time of discharge. Urine examination shows 100 to 200 red blood cells in the urine, negative for leukocyte esterase, negative nitrite. Urine toxicology screen positive for cannabinoids. Blood cultures x2 negative so far and 48 hours. Fecal occult blood test negative x2. The patient remained stable during the hospital stay. No acute event happened. The patient's symptoms improved a lot. The patient was discharged in satisfactory condition. Further details in the medical record. Charlie March MD EA/TANG /11:26 AM /8:57 PM
--- NOTE | 2016-07-07 11:02 | PD.CONS ---
Assessment and Plan Plan Consult received per stroke order set. EMR reviewed. MRI negative for acute stroke. Neurology consult reviewed and indicates TIA. Consult deferred due to no acute stroke. Please reconsult as appropriate. Thank you. Gisele Auguste MD Jul 07, 2016 11:02
== END 2016-07-06 10:46 | disposition home or self-care (01) ==
LOC: PHED 19:43 → INTOOBSV 20:37 → PHEDA 20:37 → PHEDH 07-03 00:37 → PHICU 07-03 02:55 → PH3B 07-03 14:53
PROVIDERS: ADMIT Family Medicine; ATTEND Family Medicine
DX: G45.9 Transient cerebral ischemic attack, unspecified (principal); I48.91 Unspecified atrial fibrillation; C61 Malignant neoplasm of prostate; R31.9 Hematuria, unspecified; T45.515A Adverse effect of anticoagulants, initial encounter; C77.9 Secondary and unspecified malignant neoplasm of lymph node, unspecified; C79.51 Secondary malignant neoplasm of bone; E78.00 Pure hypercholesterolemia, unspecified; F12.90 Cannabis use, unspecified, uncomplicated; E87.1 Hypo-osmolality and hyponatremia; I25.10 Atherosclerotic heart disease of native coronary artery without angina pectoris; E11.9 Type 2 diabetes mellitus without complications; I10 Essential (primary) hypertension; N40.0 Benign prostatic hyperplasia without lower urinary tract symptoms; E03.9 Hypothyroidism, unspecified; E78.5 Hyperlipidemia, unspecified; M19.90 Unspecified osteoarthritis, unspecified site; I73.9 Peripheral vascular disease, unspecified; D64.9 Anemia, unspecified; Z79.01 Long term (current) use of anticoagulants; Z86.73 Personal history of transient ischemic attack (TIA), and cerebral infarction without residual deficits; Z92.3 Personal history of irradiation; Z88.5 Allergy status to narcotic agent; Z88.0 Allergy status to penicillin; Z79.84 Long term (current) use of oral hypoglycemic drugs; Z79.82 Long term (current) use of aspirin; Z95.5 Presence of coronary angioplasty implant and graft; Z92.21 Personal history of antineoplastic chemotherapy; Z79.899 Other long term (current) drug therapy; Z79.52 Long term (current) use of systemic steroids
CPT/HCPCS: 70450; 70544; 70548; 70553; 72141; 72146; 72148; 80048; 80053; 80061; 80307; 81001; 82272; 82550; 82607; 82948; 83036; 84439; 84443; 84484; 85025; 85027; 85384; 85610; 85730; 86850; 86900; 86901; 87086; 92610; 93005; 93306; 93880; 97162; 97166; 99285; A9579; G0378; G8987; G8988; G8996; G8997; G8998; J0696; J1644; J1650; J1815; J3420; J7030; P9612

== ENCOUNTER 2018-01-20 19:44 | Observation (INO) ==
[2018-01-20] MEDS ORDERED: HYDROmorphone PF Inj 2 MG/ML Vial IV.PUSH ONE (21:31)
--- NOTE | 2018-01-20 21:43 | ED ---
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 Mondragon, oncologist is Dr. Gonsalez, urologist is Dr. Vizcaino, here by ambulance for evaluation of lower back pain. Patient reports that he has had worsening lower back pain over the last 5 days. He states that 3 days ago he fell onto his buttocks due to weakness in his lower extremities. Since that time his pain has been worsening. States that he took hydromorphone at home today with improvement in his pain, however he states his pain is currently moderate, constant, worse with movements. He complains of bilateral lower extremity weakness. Denies urinary or bowel incontinence or retention. Pain is described as sharp and shooting, nonradiating. Related Data Home Medications Medication Instructions Recorded Confirmed atorvastatin [Lipitor] 80 mg PO DAILY 01/20/18 01/20/18 calcium carbonate-vitamin D3 1 tab PO BID 01/20/18 01/20/18 [Calcium 500 + D (D3)] hydromorphone 2 mg PO Q4H PRN 01/20/18 01/20/18 leuprolide (4 month) [Eligard (4 30 mg SUBCUT [id number] 01/20/18 01/20/18 month)] levothyroxine 25 mcg PO DAILY 01/20/18 01/20/18 lisinopril 2.5 mg PO DAILY 01/20/18 01/20/18 loratadine [Claritin] 10 mg PO DAILY 01/20/18 01/20/18 metformin 500 mg PO TID 01/20/18 01/20/18 metoclopramide HCl [Reglan] 10 mg PO QID 01/20/18 01/20/18 metoprolol succinate 50 mg PO DAILY 01/20/18 01/20/18 prednisolone 5 mg PO BID 01/20/18 01/20/18 propafenone 150 mg PO TID 01/20/18 01/20/18 radium Ra 223 dichloride [Xofigo] 50 kbq/kg IV Q4W 01/20/18 01/20/18 tamsulosin 0.4 mg PO BID 01/20/18 01/20/18 warfarin [Coumadin] 2.5 mg PO QWEEK 01/20/18 01/20/18 warfarin [Coumadin] 5 mg PO DAILY 01/20/18 01/20/18 Allergies Allergy/AdvReac Type Severity Reaction Status Date / Time codeine Allergy Intermediate RASH Unverified 11/05/16 01:06 penicillin G Allergy Intermediate RASH Unverified 11/05/16 01:06 Review of Systems ROS: all other systems reviewed are negative [facility] Medical History Medical History Afib (Acute) Carpal tunnel syndrome (Acute) Colonoscopy planned (Acute) History of chemotherapy (Acute) Pneumonia (Acute) Prostate cancer (Acute) TIA (transient ischemic attack) (Acute) DM type 2 (diabetes mellitus, type 2) (Acute) HLD (hyperlipidemia) (Acute) Hypothyroid (Acute) Surgical History Surgical History History of heart artery stent (Acute) Social History Social History Substance History: No History of Abuse Smoking Status: Former smoker How Often Do You Have a Drink Containing Alcohol: Never Immunization History Tetanus Immunization: Unsure Exam Narrative Exam Narrative: GENERAL: Well-developed, well-nourished, lying on left lateral decubitus/ position, no acute distress. SKIN: Focused skin assessment warm/dry. Diffuse pallor. No rash. HEAD: Atraumatic. Normocephalic. EYES: Pupils equal and round. No scleral icterus. No injection or drainage. ENT: No nasal bleeding or discharge. Mucous membranes pink and moist. NECK: Trachea midline. No JVD. CARDIOVASCULAR: Regular rate and rhythm. RESPIRATORY: No accessory muscle use. Clear to auscultation. Breath sounds equal bilaterally. GASTROINTESTINAL: Abdomen soft, non-tender, nondistended. MUSCULOSKELETAL: No obvious deformities. No clubbing. No cyanosis. No edema. NEUROLOGICAL: Awake and alert. No obvious cranial nerve deficits. Motor grossly within normal limits. Normal speech. No focal deficits. Normal rectal tone. No saddle anesthesia. PSYCHIATRIC: Appropriate mood and affect; insight and judgment normal. Course Initial Documented Vital Signs Temperature 98.1 F 01/20/18 20:10 Pulse Rate 104 H 01/20/18 20:10 Respiratory Rate 18 01/20/18 20:10 Blood Pressure 117/60 01/20/18 20:10 Pulse Oximetry 95 01/20/18 20:10 Last Documented Vital Signs Temperature 98.1 F 01/20/18 20:10 Pulse Rate 87 01/21/18 00:16 Respiratory Rate 18 01/21/18 00:16 Blood Pressure 116/67 01/21/18 00:16 Pulse Oximetry 95 01/21/18 00:16 Medical Decision Making MDM Narrative Medical decision making narrative: Vital signs reviewed. CBC and CMP were reviewed and show elevation in alkaline phosphatase, likely secondary to his metastatic disease to bone. UA shows hematuria, not suggestive of UTI. CT abdomen pelvis: CONCLUSION: 1. Mild right-sided hydronephrosis and ureteral dilatation. No renal or ureteral calculus is identified. See below for description of bladder mass. There is a calculus laying within the bladder posterosuperiorly measuring about 3 mm. 2. Bladder mass is present. This is along the right superior aspect of the bladder and is suspicious for neoplasm. This soft tissue mass may be contributing to right-sided obstructive uropathy. Patient may benefit from cystoscopy. 3. Worsening bony sclerotic metastatic disease in the lower thoracic and lumbar spine. Extensive sclerotic changes in the pelvis. 1:10 AM: I was called by reading radiologist Dr. Finch who tells me the patient has significant metastatic disease to his thoracic and lumbar spine on the MRIs. There seems to be a pathologic fracture at L4 at the superior endplate. There is no significant spinal canal stenosis. The patient and the patient's were made aware of all findings. The patient was initially provided 1 mg of IV Dilaudid which initially helped his pain. Take up ladders later he was requesting another dose of pain medication as his pain has returned. The patient's also has metastatic cancer and is frail and is afraid that she will be unable to care for her at home in the condition that he is in. It is very difficult for him to ambulate because of the pain. I discussed hospice care with the patient and the patient's , however they are unsure of this option at this time. They discussed the possibility of having a home health nurse. I am unable to arrange this here in the emergency department. Given intractable pain and inability to ambulate because of the pain, he will be admitted for further treatment and evaluation. Medical Screen Exam Complete: Yes Emergency Medical Condition: Yes Differential Diagnosis Differential Diagnosis: Metastatic disease, vertebral fracture, spinal cord compression/cauda equina syndrome, nephrolithiasis, pyelonephritis, Lab Data Result diagrams: 01/20/18 21:50 01/20/18 21:50 Lab Results 01/20/18 01/20/18 01/20/18 Range/Units 21:50 21:50 21:50 WBC 7.0 (4.0-11.0) th/mm3 RBC 3.79 L (4.50-5.90) mil/mm3 Hgb 12.3 L (13.0-17.0) gm/dL Hct 36.0 L (39.0-51.0) % MCV 95.0 (80.0-100.0) fL MCH 32.5 (27.0-34.0) pg MCHC 34.2 (32.0-36.0) % RDW 18.5 H (11.6-17.2) % Plt Count 271 (150-450) th/mm3 MPV 6.9 L (7.0-11.0) fL Neut % (Auto) 79.3 H (16.0-70.0) % Lymph % (Auto) 9.5 (9.0-44.0) % Page % (Auto) 10.7 H (0.0-8.0) % Eos % (Auto) 0.2 (0.0-4.0) % Baso % (Auto) 0.3 (0.0-2.0) % Neut # (Auto) 5.6 (1.8-7.7) th/mm3 Lymph # (Auto) 0.7 L (1.0-4.8) th/mm3 Page # (Auto) 0.8 (0.0-0.9) th/mm3 Eos # (Auto) 0.0 (0.0-0.4) th/mm3 Baso # (Auto) 0.0 (0.0-0.2) th/mm3 WBC Differential . Differential Comment Auto diff final PT 33.0 H (9.8-11.6) sec INR 3.3 Ratio APTT 52.8 H (24.3-30.1) sec Sodium 135 L (136-145) meq/L Potassium 4.2 (3.5-5.1) meq/L Chloride 101 (98-107) meq/L Carbon Dioxide 25.7 (21.0-32.0) meq/L Anion Gap 8 (5-15) meq/L BUN 12 (7-18) mg/dL Creatinine 0.66 (0.60-1.30) mg/dL Estimated GFR Greater than 89 (>89) mL/min Random Glucose 124 H (74-106) mg/dL Calcium 8.6 (8.5-10.1) mg/dL Magnesium 1.6 (1.5-2.5) mg/dL Total Bilirubin 0.5 (0.2-1.0) mg/dL AST 45 H (15-37) U/L ALT 47 (12-78) U/L Alkaline Phosphatase 415 H (45-117) U/L Total Protein 6.4 (6.4-8.2) g/dL Albumin 2.2 L (3.4-5.0) g/dL Lipase 78 (73-393) U/L Urine Color (Yellw/Straw) Urine Clarity (Clear) Urine pH (5.0-8.5) Ur Specific [place] (1.002-1.035) Urine Protein (Neg-Trace) mg/dL Urine Glucose (UA) (Negative) mg/dL Urine Ketones (Negative) mg/dL Urine Occult Blood (Negative) Urine Nitrate (Negative) Urine Bilirubin (Negative) Urine Urobilinogen (Less than 2) mg/dL Ur Leukocyte Esterase (Negative) Urine RBC (0-3) /hpf Urine WBC (0-5) /hpf Urine Bacteria (None) /hpf Urine Mucus (Occasional) /lpf Micro UA Comment Ur Microscopic Review Urine Culture Comments 01/20/18 Range/Units 21:55 WBC (4.0-11.0) th/mm3 RBC (4.50-5.90) mil/mm3 Hgb (13.0-17.0) gm/dL Hct (39.0-51.0) % MCV (80.0-100.0) fL MCH (27.0-34.0) pg MCHC (32.0-36.0) % RDW (11.6-17.2) % Plt Count (150-450) th/mm3 MPV (7.0-11.0) fL Neut % (Auto) (16.0-70.0) % Lymph % (Auto) (9.0-44.0) % Page % (Auto) (0.0-8.0) % Eos % (Auto) (0.0-4.0) % Baso % (Auto) (0.0-2.0) % Neut # (Auto) (1.8-7.7) th/mm3 Lymph # (Auto) (1.0-4.8) th/mm3 Page # (Auto) (0.0-0.9) th/mm3 Eos # (Auto) (0.0-0.4) th/mm3 Baso # (Auto) (0.0-0.2) th/mm3 WBC Differential Differential Comment PT (9.8-11.6) sec INR Ratio APTT (24.3-30.1) sec Sodium (136-145) meq/L Potassium (3.5-5.1) meq/L Chloride (98-107) meq/L Carbon Dioxide (21.0-32.0) meq/L Anion Gap (5-15) meq/L BUN (7-18) mg/dL Creatinine (0.60-1.30) mg/dL Estimated GFR (>89) mL/min Random Glucose (74-106) mg/dL Calcium (8.5-10.1) mg/dL Magnesium (1.5-2.5) mg/dL Total Bilirubin (0.2-1.0) mg/dL AST (15-37) U/L ALT (12-78) U/L Alkaline Phosphatase (45-117) U/L Total Protein (6.4-8.2) g/dL Albumin (3.4-5.0) g/dL Lipase (73-393) U/L Urine Color Yellow (Yellw/Straw) Urine Clarity Clear (Clear) Urine pH 5.5 (5.0-8.5) Ur Specific [place] 1.021 (1.002-1.035) Urine Protein Trace (Neg-Trace) mg/dL Urine Glucose (UA) Negative (Negative) mg/dL Urine Ketones Negative (Negative) mg/dL Urine Occult Blood Moderate (Negative) Urine Nitrate Negative (Negative) Urine Bilirubin Negative (Negative) Urine Urobilinogen 0.2 (Less than 2) mg/dL Ur Leukocyte Esterase Negative (Negative) Urine RBC 15-50 H (0-3) /hpf Urine WBC 0-5 (0-5) /hpf Urine Bacteria Rare H (None) /hpf Urine Mucus Few H (Occasional) /lpf Micro UA Comment Culture not ind Ur Microscopic Review Not Reportable Urine Culture Comments Culture not ind Imaging Data Radiologist's impression: Abdomen/Pelvis CT 01/20/18 21:31 CONCLUSION: 1. Mild right-sided hydronephrosis and ureteral dilatation. No renal or ureteral calculus is identified. See below for description of bladder mass. There is a calculus laying within the bladder posterosuperiorly measuring about 3 mm. 2. Bladder mass is present. This is along the right superior aspect of the bladder and is suspicious for neoplasm. This soft tissue mass may be contributing to right-sided obstructive uropathy. Patient may benefit from cystoscopy. 3. Worsening bony sclerotic metastatic disease in the lower thoracic and lumbar spine. Extensive sclerotic changes in the pelvis. Discharge Plan Physicians Team ED Provider: Johny Mendenhall Primary Care Provider: UNKNOWN, Rxs /Orders / Referrals /Forms Prescriptions: No Action metformin 500 mg Tablet 500 mg PO TID RF: 0 propafenone 150 mg Tablet 150 mg PO TID RF: 0 atorvastatin [Lipitor] 80 mg Tablet 80 mg PO DAILY RF: 0 metoprolol succinate 50 mg Tablet Extended Release 24 Hr 50 mg PO DAILY RF: 0 warfarin [Coumadin] 2.5 mg Tablet 2.5 mg PO QWEEK RF: 0 levothyroxine 25 mcg Tablet 25 mcg PO DAILY RF: 0 hydromorphone 2 mg Tablet 2 mg PO Q4H PRN (Reason: Pain) RF: 0 tamsulosin 0.4 mg Capsule 0.4 mg PO BID RF: 0 warfarin [Coumadin] 5 mg Tablet 5 mg PO DAILY RF: 0 lisinopril 2.5 mg Tablet 2.5 mg PO DAILY RF: 0 loratadine [Claritin] 10 mg Tablet 10 mg PO DAILY RF: 0 prednisolone 5 mg Tablet 5 mg PO BID RF: 0 metoclopramide HCl [Reglan] 10 mg Tablet 10 mg PO QID RF: 0 leuprolide (4 month) [Eligard (4 month)] 30 mg Syringe 30 mg SUBCUT [id number] RF: 0 calcium carbonate-vitamin D3 [Calcium 500 + D (D3)] 500 mg(1,250mg) -125 unit Tablet 1 tab PO BID RF: 0 radium Ra 223 dichloride [Xofigo] 1,100 kBq/mL(30 microcurie/mL) Solution 50 kbq/kg IV Q4W RF: 0 Discharge Interventions Interventions: Vital Signs Last Done: 01/21/18 00:16 Status ED Status: With Doctor
[2018-01-20] MEDS ORDERED: Sod Chloride 0.9% Inj 1,000 ML IV.CONT SCH (21:45)
[2018-01-20 22:09] LABS: Baso % (Auto) 0.3 % (0.0-2.0); Eos % (Auto) 0.2 % (0.0-4.0); Hemoglobin 12.3 gm/dL (13.0-17.0); Lymph # (Auto) 0.7 th/mm3 (1.0-4.8); Lymph % (Auto) 9.5 % (9.0-44.0); Mean Corpuscular HGB Conc 34.2 % (32.0-36.0); Mean Corpuscular Hemoglobin 32.5 pg (27.0-34.0); Mean Platelet Volume 6.9 fL (7.0-11.0); Mono # (Auto) 0.8 th/mm3 (0.0-0.9); Mono % (Auto) 10.7 % (0.0-8.0); Neut # (Auto) 5.6 th/mm3 (1.8-7.7); Neut % (Auto) 79.3 % (16.0-70.0); Platelet Count 271 th/mm3 (150-450); Red Blood Count 3.79 mil/mm3 (4.50-5.90); Red Cell Distribution Width 18.5 % (11.6-17.2)
[2018-01-20 22:22] LABS: Activated Partial Thrombo Time 52.8 sec (24.3-30.1); INR 3.3 Ratio
--- NOTE | 2018-01-20 22:25 | CT ---
EXAM DATE: 01/20/2018 10:11 PM EDT AGE/SEX: 72 years / Male INDICATIONS: Right flank pain. CLINICAL DATA: This is the patient's initial encounter. Patient reports that signs and symptoms have been present for 1 day and indicates a pain score of 7/10. MEDICAL/SURGICAL HISTORY: Diabetes. Carcinoma, prostatic. Cardiovascular disease. Atrial fib rillation, coronary stent None. RADIATION DOSE: 7.84 CTDI (mGy) COMPARISON: POI, CT ABDOMEN AND PELVIS W/O CONTRAST, 08/21/2017. . TECHNIQUE: Multiple contiguous axial images were obtained through the abdomen. Images were obtained using multiple row detector helical technique. Using automated exposure control and adjustment of the mA and/or kV according to patient size, radiation dose was kept as low as reasonably achievable to o btain optimal diagnostic quality images. DICOM format image data is available electronically for rev iew and comparison. FINDINGS: At the lung bases pulmonary nodules are increasing in size compared with August 2017. Nodule at the rig ht lung base and left lung base now measures 14 mm in diameter compared previous measurement of 7 mm bilaterally.. There is worsening sclerotic metastatic disease in the lower thoracic lumbar spine. No pathologic fra cture. No acute findings in the liver, spleen, adrenals or pancreas. There is mild right-sided hydronephrosi s and ureteral dilatation to the level of the bladder. No calcified gallstones or biliary ductal dilatation. There is no bowel obstruction. No free air or free fluid. There is a suspected soft tissue mass along the superior aspect of the bladder extending to the right side which is suspicious for bladder neoplasm or hemorrhage. Prostate gland is atrophic with radiati on seed implants present. There is a calculus within the bladder which may have passed from the right side. CONCLUSION: 1. Mild right-sided hydronephrosis and ureteral dilatation. No renal or ureteral calculus is identif ied. See below for description of bladder mass. There is a calculus laying within the bladder postero superiorly measuring about 3 mm. 2. Bladder mass is present. This is along the right superior aspect of the bladder and is suspicious for neoplasm. This soft tissue mass may be contributing to right-sided obstructive uropathy. Patient may benefit from cystoscopy. 3. Worsening bony sclerotic metastatic disease in the lower thoracic and lumbar spine. Extensive scl erotic changes in the pelvis. Electronically signed by: Nehemiah Zurita MD 01/20/2018 10:24 PM EDT
[2018-01-20 22:31] LABS: Albumin 2.2 g/dL (3.4-5.0); Anion Gap 8 meq/L (5-15); Aspartate Aminotransferase 45 U/L (15-37); Blood Urea Nitrogen 12 mg/dL (7-18); Calcium 8.6 mg/dL (8.5-10.1); Carbon Dioxide 25.7 meq/L (21.0-32.0); Chloride 101 meq/L (98-107); Glomerular Filtration Rate Greater Than 89 mL/min (>89); Glucose,Random 124 mg/dL (74-106); Lipase 78 U/L (73-393); Magnesium 1.6 mg/dL (1.5-2.5); Potassium 4.2 meq/L (3.5-5.1); Sodium 135 meq/L (136-145)
[2018-01-20 22:32] LABS: Alanine Aminotransferase 47 U/L (12-78)
[2018-01-20 22:34] LABS: Alkaline Phosphatase 415 U/L (45-117); Total Protein 6.4 g/dL (6.4-8.2)
[2018-01-20 23:28] LABS: Bilirubin,Urine Negative (Negative); Color,Urine Yellow (Yellw/Straw); Glucose,Urine (UA) Negative (Negative); Leukocyte Esterase,Urine Negative (Negative); Nitrite,Urine Negative (Negative); PH,Urine 5.5 (5.0-8.5); Urobilinogen,Urine 0.2 mg/dL (Less than 2)
[2018-01-20 23:55] LABS: Specific Gravity,Urine 1.021 (1.002-1.035)
[2018-01-20 23:57] LABS: Clarity,Urine Clear (Clear)
[2018-01-20 23:58] LABS: Bacteria,Urine Rare /hpf; WBC,Urine 0-5 /hpf (0-5)
[2018-01-20 23:59] LABS: Mucus,Urine Few /lpf (Occasional)
[2018-01-21] MEDS ORDERED: HYDROmorphone PF Inj 2 MG/ML Vial IV.PUSH ONE (01:06)
[2018-01-21] MEDS ORDERED: Naloxone Inj 0.4 MG/ML Vial IV.PUSH PRN (01:51)
[2018-01-21] MEDS ORDERED: Bisacodyl 10 MG Supp RECTAL PRN (01:53)
[2018-01-21] MEDS ORDERED: Dextrose 50% in Water 50 ML Vial IV.PUSH PRN (01:58)
[2018-01-21] MEDS ORDERED: Sodium Chloride 0.9% 2 ML Flush PRN IV.FLUSH (01:58)
[2018-01-21] MEDS ORDERED: Warfarin Consult Pharmacy OTHER PRN (02:03)
--- NOTE | 2018-01-21 04:30 | P.HPIM ---
History of Present Illness Service: [facility] . Primary Care Physician: UNKNOWN Chief Complaint: Intractable back pain History of Present Illness: Mr. Hernandez is a pleasant 72-year-old male with a history of prostate cancer with metastasis to the bones, lymph nodes, and bladder as well as remote history of CVA, atrial fibrillation, type 2 diabetes mellitus, hyperlipidemia, pneumonia, coronary artery disease, and TIA who presented to the emergency room complaining of severe back pain not relieved with home analgesia regimen accompanied by severe weakness. The patient's also has terminal breast cancer and has been having difficulty caring for him at home. The patient is seen in the CDU. He reports adequate pain relief with the IV Dilaudid that was given in the emergency room. He seems mostly interested in finding a way to manage his pain adequately at home. He expresses desire for DNR CODE STATUS and states he is interested in possibly learning more about hospice but indicates that his would need to be involved in any discussions about hospice consultation. He is willing to discuss options with palliative care as long as his is involved. He tells me that his physicians have told him that he is terminal and that his oncologist told him it was "getting to that time" to start thinking about hospice. He indicates that he has written advanced directives. He denies any recent fever, chills, or chest pain. He reports intermittent nausea, vomiting and diarrhea though none within the past few days. He reports chronic shortness of breath with exertion and cough producing white sputum. He is refusing chest x-ray at this time. His oncologist is Dr. Gonsalez, Dr. Obregon is his urologist, and Dr. Mondragon is his radiation oncologist. . Review of Systems All other systems reviewed negative except as stated in HPI PMFSH - History History Provided By: Patient - Medical History Medical History: Medical History (Last Reviewed 01/21/18 @ 06:27 by NIMO Stokes) Afib Carpal tunnel syndrome Colonoscopy planned History of chemotherapy Pneumonia Prostate cancer TIA (transient ischemic attack) DM type 2 (diabetes mellitus, type 2) HLD (hyperlipidemia) Hypothyroid - Surgical History Surgical History: Surgical History (Last Reviewed 01/21/18 @ 06:27 by NIMO Stokes) History of heart artery stent - Family History Family History: Family History (Last Updated 01/21/18 @ 06:28 by NIMO Stokes) Other No family history of cancer - Social History I have reviewed the patient's Social History: Yes - Tobacco History Smoking Status: Former smoker - Alcohol History How Often Do You Have a Drink Containing Alcohol: Never - Substance Use History Substance History: No History of Abuse - Travel History Recent Travel in the [place] Within the Last 8 Weeks: No Recent Travel Out of the Country Within the Last 8 Weeks: No - Immunization History Tetanus Immunization: Unsure Medications and Allergies Active Medications: Active Medications Al Hydroxide/Mg Hydroxide (Milk Of Magnesia Liq) 30 ml PO Q12H PRN PRN Reason: Mild Constipation Atorvastatin Calcium (Lipitor) 80 mg PO DAILY [facility] Bisacodyl (Dulcolax Supp) 10 mg RECTAL DAILY PRN PRN Reason: SEVERE CONSITIPATION Calcium/Vitamin D (Oscal With D 250/125 Mg) 500 tab PO BID [facility] Dextrose (D50w Vial) 50 ml IV.PUSH UNSCH PRN PRN Reason: PER HYPOGLYCEMIA PROTOCOL Glucagon (Glucagon Inj) 1 mg OTHER PRN PRN PRN Reason: for Hypoglycemia Protocol Hydromorphone HCl (Dilaudid) 2 mg PO Q4H PRN PRN Reason: Pain 1-10 Hydromorphone HCl (Dilaudid Pf Inj) 1 mg IV.PUSH Q4H PRN PRN Reason: BREAKTHROUGH PAIN Sodium Chloride (Ns Inj) 1,000 mls @ 125 mls/hr IV.CONT .Q8H [facility] Stop: 01/21/18 05:44 Last Admin: 01/20/18 21:54 Dose: 125 mls/hr Insulin Aspart (Novolog Insulin Correctional Sugar Inj) 0 unit SQ ACHS [facility]; Protocol Lactulose (Lactulose Liq) 30 ml PO DAILY PRN PRN Reason: SEVERE CONSITIPATION Levothyroxine Sodium (Synthroid) 25 mcg PO DAILY@0600 [facility] Lisinopril (Prinivil) 2.5 mg PO DAILY [facility] Loratadine (Claritin) 10 mg PO DAILY [facility] Metformin HCl (Glucophage) 500 mg PO TID [facility] Metoclopramide HCl (Reglan) 10 mg PO QID [facility] Metoprolol Succinate (Toprol Xl) 50 mg PO DAILY [facility] Naloxone HCl (Narcan Inj) 0.4 mg IV.PUSH UNSCH PRN PRN Reason: SEE LABEL COMMENTS Pharmacy Profile Note (Coumadin Consult Pharmacy) 1 each OTHER UNSCH PRN PRN Reason: PHARMACY DOCUMENTATION Prednisolone Sodium Phosphate (Prednisolone (Alc Free) Liq) 5 mg PO BID [facility] Propafenone HCl (Rythmol) 150 mg PO TID [facility] Senna/Docusate Sodium (Porsha-Colace) 1 tab PO BID [facility] Sennosides (Senokot) 17.2 mg PO Q12H PRN PRN Reason: Moderate Constipation Sodium Chloride (Ns Flush) 2 ml IV.FLUSH BID [facility] Sodium Chloride (Ns Flush) 2 ml IV.FLUSH PRN PRN PRN Reason: FLUSH AFTER USING IV ACCESS Tamsulosin HCl (Flomax) 0.4 mg PO BID [facility] Allergies Allergy/AdvReac Type Severity Reaction Status Date / Time codeine Allergy Intermediate RASH Verified 01/21/18 03:15 penicillin G Allergy Intermediate RASH Verified 01/21/18 03:15 Home Medications Medication Instructions Recorded Confirmed Type atorvastatin [Lipitor] 80 mg PO DAILY 01/20/18 01/20/18 History calcium carbonate-vitamin D3 1 tab PO BID 01/20/18 01/20/18 History [Calcium 500 + D (D3)] hydromorphone 2 mg PO Q4H PRN 01/20/18 01/20/18 History leuprolide (4 month) [Eligard (4 30 mg SUBCUT [id number] 01/20/18 01/20/18 History month)] levothyroxine 25 mcg PO DAILY 01/20/18 01/20/18 History lisinopril 2.5 mg PO DAILY 01/20/18 01/20/18 History loratadine [Claritin] 10 mg PO DAILY 01/20/18 01/20/18 History metformin 500 mg PO TID 01/20/18 01/20/18 History metoclopramide HCl [Reglan] 10 mg PO QID 01/20/18 01/20/18 History metoprolol succinate 50 mg PO DAILY 01/20/18 01/20/18 History prednisolone 5 mg PO BID 01/20/18 01/20/18 History propafenone 150 mg PO TID 01/20/18 01/20/18 History radium Ra 223 dichloride [Xofigo] 50 kbq/kg IV Q4W 01/20/18 01/20/18 History tamsulosin 0.4 mg PO BID 01/20/18 01/20/18 History warfarin [Coumadin] 2.5 mg PO QWEEK 01/20/18 01/20/18 History warfarin [Coumadin] 5 mg PO DAILY 01/20/18 01/20/18 History Exam Vital signs: Vital Signs 01/20/18 20:10 01/20/18 22:00 01/20/18 23:00 Temperature 98.1 F Pulse Rate 104 H 81 Respiratory Rate 18 18 16 Blood Pressure 117/60 119/56 L Pulse Oximetry 95 95 01/21/18 00:16 Temperature Pulse Rate 87 Respiratory Rate 18 Blood Pressure 116/67 Pulse Oximetry 95 Intake & Output 01/20/18 01/20/18 01/21/18 06:59 18:59 06:59 Weight 86.183 kg Narrative: GENERAL: This is a pleasant, pale and chronically ill appearing elderly male patient, in no apparent distress. SKIN: No rashes, ecchymoses or lesions. Cool and dry. HEAD: Atraumatic. Normocephalic. EYES: No scleral icterus. No injection or drainage. ENT: Nose without bleeding, purulent drainage. NECK: Trachea midline. No JVD. CARDIOVASCULAR: Regular rate and rhythm without murmurs, gallops, or rubs. RESPIRATORY: Breath sounds equal bilaterally. Coarse rhonchi noted bibasilarly. GASTROINTESTINAL: Abdomen soft, non-tender, nondistended. No guarding. MUSCULOSKELETAL: Extremities without clubbing, cyanosis, or edema. No calf tenderness. NEUROLOGICAL: Awake and alert. Motor and sensory grossly within normal limits. Normal speech. . Results - Labs CBC & Chem 7: 01/20/18 21:50 01/20/18 21:50 Labs: Short CBC 01/20/18 Range/Units 21:50 WBC 7.0 (4.0-11.0) th/mm3 Hgb 12.3 L (13.0-17.0) gm/dL Hct 36.0 L (39.0-51.0) % Plt Count 271 (150-450) th/mm3 BMP 01/20/18 21:50 Sodium 135 L Potassium 4.2 Chloride 101 Carbon Dioxide 25.7 BUN 12 Creatinine 0.66 Calcium 8.6 Liver Function 01/20/18 Range/Units 21:50 Total Bilirubin 0.5 (0.2-1.0) mg/dL AST 45 H (15-37) U/L ALT 47 (12-78) U/L Alkaline Phosphatase 415 H (45-117) U/L Albumin 2.2 L (3.4-5.0) g/dL Urine 01/20/18 Range/Units 21:55 Urine Color Yellow (Yellw/Straw) Urine Clarity Clear (Clear) Urine pH 5.5 (5.0-8.5) Ur Specific [place] 1.021 (1.002-1.035) Urine Protein Trace (Neg-Trace) mg/dL Urine Glucose (UA) Negative (Negative) mg/dL - Imaging Impressions Abdomen/Pelvis CT 01/20/18 21:31 CONCLUSION: 1. Mild right-sided hydronephrosis and ureteral dilatation. No renal or ureteral calculus is identified. See below for description of bladder mass. There is a calculus laying within the bladder posterosuperiorly measuring about 3 mm. 2. Bladder mass is present. This is along the right superior aspect of the bladder and is suspicious for neoplasm. This soft tissue mass may be contributing to right-sided obstructive uropathy. Patient may benefit from cystoscopy. 3. Worsening bony sclerotic metastatic disease in the lower thoracic and lumbar spine. Extensive sclerotic changes in the pelvis. Caprini VTE Risk Assessment Caprini VTE Risk Assessment: Moderate/High Risk (score >= 2) Caprini Risk Assessment Model: Point Value = 1 Point Value = 2 Point Value = 3 Point Value = 5 Age 41-60 Minor surgery BMI > 25 kg/m2 Swollen legs Varicose veins or History of unexplained or recurrent spontaneous Oral contraceptives or hormone replacement Sepsis (< 1 month) Serious lung disease, including pneumonia (< 1 month) Abnormal pulmonary function Acute myocardial infarction Congestive heart failure (< 1 month) History of inflammatory bowel disease Medical patient at bed rest Age 61-74 Arthroscopic surgery Major open surgery (> 45 min) Laparoscopic surgery (> 45 min) Malignancy Confined to bed (> 72 hours) Immobilizing plaster cast Central venous access Age >= 75 History of VTE Family history of VTE Factor V Leiden Prothrombin [id number] Lupus anticoagulant Anticardiolipin antibodies Elevated serum homocysteine Heparin-induced thrombocytopenia Other congenital or acquired thrombophilia Stroke (< 1 month) Elective arthroplasty Hip, pelvis, or leg fracture Acute spinal cord injury (< 1 month) Prophylaxis Regimen: Total Risk Factor Score Risk Level Prophylaxis Regimen 0-1 Low Early ambulation 2 Moderate Order ONE of the following: *Sequential Compression Device (SCD) *Heparin 5000 units SQ BID 3-4 Higher Order ONE of the following medications: *Heparin 5000 units SQ TID *Enoxaparin/Lovenox 40 mg SQ daily (WT < 150 kg, CrCl > 30 mL/min) *Enoxaparin/Lovenox 30 mg SQ daily (WT < 150 kg, CrCl > 10-29 mL/min) *Enoxaparin/Lovenox 30 mg SQ BID (WT < 150 kg, CrCl > 30 mL/min) AND/OR *Sequential Compression Device (SCD) 5 or more Highest Order ONE of the following medications: *Heparin 5000 units SQ TID (Preferred with Epidurals) *Enoxaparin/Lovenox 40 mg SQ daily (WT < 150 kg, CrCl > 30 mL/min) *Enoxaparin/Lovenox 30 mg SQ daily (WT < 150 kg, CrCl > 10-29 mL/min) *Enoxaparin/Lovenox 30 mg SQ BID (WT < 150 kg, CrCl > 30 mL/min) AND *Sequential Compression Device (SCD) Assessment and Plan - Plan Mr. Hernandez is a pleasant 72-year-old male with a history of prostate cancer with metastasis to the bones, lymph nodes, and bladder as well as remote history of CVA, atrial fibrillation, type 2 diabetes mellitus, hyperlipidemia, pneumonia, coronary artery disease, and TIA who presented to the emergency room complaining of severe back pain not relieved with home analgesia regimen accompanied by severe weakness. The patient's also has terminal breast cancer and has been having difficulty caring for him at home. The patient was found to have significant metastatic disease to thoracic and lumbar spine on MRI with pathological fracture at L4 at the superior endplate. CT of abdomen and pelvis shows mild right-sided hydronephrosis and ureteral dilation without renal or ureteral calculus noted. There is a bladder mass seen. Prostate cancer with metastasis to the bone and now with a bladder mass -Urology consulted -appreciate assistance -Palliative care consulted -appreciate assistance - patient is willing to discuss hospice option as long as his is present for discussion -Continue home Dilaudid with breakthrough IV Dilaudid 1 mg every 4 hours as needed for breakthrough pain -N.p.o. status Type 2 Diabetes Mellitus -Hold metformin in case contrast studies are needed -Accu-Cheks before meals and at bedtime with low-dose NovoLog sliding scale coverage -Hypoglycemia protocol -Monitor trends and blood glucose readings and adjust treatments as indicated Generalized weakness -Consult physical therapy and occupational therapy Hypothyroidism -Resume home Synthroid DVT prophylaxis -INR 3.3 on admission -Coumadin currently being held -Pharmacy consultation for Coumadin monitoring and therapeutic dosing Code Status: Elects No Code/DNR . Discussed Condition With: Patient, Dr. Cm, and RN .
--- NOTE | 2018-01-21 07:27 | MR ---
EXAM DATE: 01/21/2018 12:00 AM EDT AGE/SEX: 72 years / Male INDICATIONS: Metastatic disease. CLINICAL DATA: This is the patient's subsequent encounter. Patient reports that signs and symptoms h ave been present for 4 - 6 days and indicates a pain score of 4/10. MEDICAL/SURGICAL HISTORY: . HTN, DM II, Bladder CA . Lumbar, Radiation, Radical Keratotmy (jo ann at eyes), Carpal Tunnel bilat, Cardiac Stent, Aortic Valve, Femoral stents, Prostate bx, Bladder, Johanny or Urethra removal COMPARISON: [facility] [place] LUMBAR SPINE W/O CONTRAST, 01/20/2018. . TECHNIQUE: Multiplanar, multisequence MRI examination of the cervical spine was performed without an d with 8 ml Gadavist (gadobutrol) contrast as a single exam dose. FINDINGS: Patient was given intravenous contrast however could not tolerate further imaging and cont rasted images were not obtained. Metastatic lesion almost completely infiltrates the C7 vertebral body, slightly sparing towards the l eft. The lesion extends into the right lateral mass and also the posterior spinous process. An approx imately 14 mm lesion involves the right pedicle and facet of T1. Several small lesions are seen invol ving C3 and C4 vertebral bodies. There is also several small lesions within the upper thoracic spine at T1-T3 levels. C2-C3: The thecal sac has a normal configuration. There is no evidence of disc herniation or spinal canal stenosis. The neural foramina are patent bilaterally. C3-C4: Shallow left-sided protrusion abuts ventral thecal sac without canal stenosis. Uncovertebral spurring causes mild bilateral neural foraminal narrowing. C4-C5: Shallow central protrusion abuts ventral thecal sac without canal stenosis. The neural terry brady are patent bilaterally. C5-C6: Mild broad-based protrusion abuts ventral thecal sac. Slight cord flattening. No canal stenos is. The neural foramina are patent bilaterally. C6-C7: The thecal sac has a normal configuration. There is no evidence of disc herniation or spinal canal stenosis. Uncovertebral spurring causes moderate right and mild left neural foraminal narrowin g. C7-T1: No epidural impressions seen. CONCLUSION: 1. Multiple metastatic lesions more prominent at C7. 2. No compression fracture or canal stenosis. Electronically signed by: Christopher Page MD 01/21/2018 7:25 AM EDT
--- NOTE | 2018-01-21 07:33 | MR ---
EXAM DATE: 01/21/2018 12:01 AM EDT AGE/SEX: 72 years / Male INDICATIONS: Metastatic disease. CLINICAL DATA: This is the patient's subsequent encounter. Patient reports that signs and symptoms h ave been present for 4 - 6 days and indicates a pain score of 5/10. MEDICAL/SURGICAL HISTORY: . HTN, BLadder Ca, DM II . Lumbar, Radiation, Radical Keratotmy (jo ann at eyes), Carpal Tunnel bilat, Cardiac Stent, Aortic Valve, Femoral stents, Prostate bx, Bladder, Johanny or Urethra removal COMPARISON: [facility] – [place], [place] CERVICAL SPINE W/O CONTRAST, 01/20/2018. . TECHNIQUE: Multiplanar, multisequence MRI examination of the lumbar spine was performed without and with 8.5 ml Gadavist (gadobutrol) contrast as a single exam dose. FINDINGS: Patient was given intravenous contrast however terminated study prematurely and postcontras anny images not obtained. Multiple low T1 lesions are seen throughout the spine consistent with multiple metastatic lesions. Th malena are seen at every level of the lumbar spine but more notably at L3 with involvement of the verteb ral body and posterior elements bilaterally.. Prominent lesion is also seen at S1 and S2. Lesions are also noted at T11 and T12 vertebral bodies. There is soft tissue density within the neural foramen a t T11-12 bilaterally. No disc pathology at T12-L1, L1-L2 levels. Mild right-sided broad-based protrus ion L3-4 abuts ventral thecal sac. In conjunction with moderate facet arthropathy causes mild canal s tenosis. Mild broad-based disc bulge at L4-5 and L5-S1 levels. There is soft tissue density in the la teral epidural regions bilaterally at L3 level which does appear to cause canal stenosis.. CONCLUSION: 1. Multiple metastatic lesions more notably at L3 with involvement of the vertebral body and posteri or elements. There is also soft tissue density in the lateral epidural regions causing canal stenosis . 2. There is soft tissue density within both neural foramen at T11-T12 levels causing significant mitchell ral foraminal encroachment. Electronically signed by: Christopher Page MD 01/21/2018 7:32 AM EDT
--- NOTE | 2018-01-21 07:38 | MR ---
EXAM DATE: 01/21/2018 12:04 AM EDT AGE/SEX: 72 years / Male INDICATIONS: Metastatic disease. CLINICAL DATA: This is the patient's subsequent encounter. Patient reports that signs and symptoms h ave been present for 4 - 6 days and indicates a pain score of 5/10. MEDICAL/SURGICAL HISTORY: . HTN, Bladder ca, DM II . Lumbar, Radiation, Radical Keratotmy (jo ann at eyes), Carpal Tunnel bilat, Cardiac Stent, Aortic Valve, Femoral stents, Prostate bx, Bladder, Johanny or Urethra removal COMPARISON: [facility] – [place], MR CERVICAL SPINE W/O CONTRAST, 01/20/2018. . TECHNIQUE: Multiplanar, multisequence MRI of the thoracic spine was performed. FINDINGS: Patient was injected with contrast however and the study prematurely and post contrasted i mages not obtained. Vertebrae: Multiple low T1 lesions throughout the spine but greatest at T8 T10 T11 and T12 vertebral bodies consistent with metastatic lesions. There is involvement of the posterior elements at T8, T10 , T11 and T12 vertebral bodies. There is soft tissue density in the anterior and lateral epidural spa ce at T11 level causing canal stenosis. Alignment: Normal. Cord: Normal position and configuration. T1-T2: The thecal sac has a normal diameter. No evidence of disc bulge or protrusion. T2-T3: The thecal sac has a normal diameter. No evidence of disc bulge or protrusion. T3-T4: The thecal sac has a normal diameter. No evidence of disc bulge or protrusion. T4-T5: The thecal sac has a normal diameter. No evidence of disc bulge or protrusion. T5-T6: The thecal sac has a normal diameter. No evidence of disc bulge or protrusion. T6-T7: The thecal sac has a normal diameter. No evidence of disc bulge or protrusion. T7-T8: The thecal sac has a normal diameter. No evidence of disc bulge or protrusion. T8-T9: The thecal sac has a normal diameter. No evidence of disc bulge or protrusion. T9-T10: The thecal sac has a normal diameter. No evidence of disc bulge or protrusion. T10-T11: The thecal sac has a normal diameter. No evidence of disc bulge or protrusion. There is so ft tissue density in the neural foramen bilaterally. T11-T12: The thecal sac has a normal diameter. No evidence of disc bulge or protrusion. Soft tissue density in the neural foramen bilaterally. T12-L1: The thecal sac has a normal diameter. No evidence of disc bulge or protrusion. CONCLUSION: 1. Multiple metastatic lesions greatest from T8-T12 with involvement of the neural foramen at T10-11 and T11-12 levels. 2. There is also involvement of the anterior and lateral epidural space at T11 causing canal stenosi s. 3. No compression fractures or spondylolisthesis. Electronically signed by: Christopher Page MD 01/21/2018 7:37 AM EDT
[2018-01-21] MEDS: Propafenone 150 MG Tablet PO SCH ×2 (08:17→18:55)
[2018-01-21] MEDS: Lisinopril 5 MG Tablet PO SCH (08:17)
[2018-01-21] MEDS: prednisoLONE (Alcohol Free) Liq 15 MG/5 ML Oral Syringe PO SCH ×2 (08:17→21:50)
[2018-01-21] MEDS: Senna/Docusate Sodium 8.6/50 MG Tablet PO SCH ×2 (08:17→21:11)
[2018-01-21] MEDS: Calcium/Vitamin D 250/125 MG Tablet PO SCH ×2 (08:17→21:12)
[2018-01-21] MEDS: Loratadine 10 MG Tablet PO SCH (08:17)
[2018-01-21] MEDS: Metoclopramide 10 MG Tablet PO SCH ×3 (08:17→23:27)
[2018-01-21] MEDS: Sodium Chloride 0.9% 2 ML Flush BID IV.FLUSH SCH ×2 (08:17→21:12)
[2018-01-21] MEDS: Insulin NovoLOG Aspart Correctional Sugar Inj SQ SCH ×3 (08:20→23:27)
[2018-01-21 10:07] LABS: INR 3.4 Ratio; Prothrombin Time 34.7 sec (9.8-11.6)
--- NOTE | 2018-01-21 11:01 | P.CONPAL ---
Consult Service: Palliative Care Requesting Physician: Jaquelin Dockery Reason for Consult: a. To assist with evaluation and management of symptoms including: pain, debility b. To assist medical decision maker(s) with: better understanding of current medical conditions; weighing benefits/burdens of medical treatment options; making medical treatment decisions. Primary Care Provider: UNKNOWN History of Present Illness History of Present Illness: Mr. Hernandez is a 72yo male who presented to [facility] on 01/20/18 with complaints of worsening lower back pain after a fall. His past medical history is significant for prostate cancer with mets to the bone, diabetes, hypothyroidism, hyperlipidemia, Afib, and a TIA in 06/2016. He presented to the emergency room with worsening pain over the past 5 days which he describes as sharp and shooting, nonradiating. The patient stated that 3 days ago he fell on his buttocks due to weakness in his lower extremities and since then the pain has been increasing. He has been using his home hydromorphone with minimal improvement. At the time of the incident he denied any urinary or bowel incontinence or retention. Of note the patient currently lives with his who has metastatic breast disease. She verbalized her concern for being able to care for her at home as his ambulatory status is limited due to his disease progression. Given his medical history the decision was made to admit the patient for further evaluation and treatment. Initial emergency room evaluation revealed: * Temp 98.1, pulse 104, respiratory rate 18, BP 117/60, pulse ox 95% on room air * WBC 7.0, RBC 3.79, Hgb 12.3, HCT 36.0, platelets 271, RDW 18.5 * NA 135, K+ 4.2, CL 101, CO2 25.7, BUN 12, creatinine 0.66, glucose 124 * Total bili 0.5, AST 45, ALT 47, alkaline phosphatase 415, total protein 6.4, albumin 2.2, lipase 78 * Abdominal/pelvis CT: 1. Mild right-sided hydronephrosis and ureteral dilatation. No renal or ureteral calculus is identified. There is a calculus lying within the bladder posterior superiorly measuring about 3 mm 2. Bladder mass is present this is along the right superior aspect of the bladder and is suspicious for neoplasm. This soft tissue mass may be contributing to right- sided obstructive uropathy. Patient may benefit from cystoscopy. 3. Worsening bony sclerotic metastatic disease in the lower thoracic lumbar spine. Extensive sclerotic changes in the pelvis [facility] and able to voice his desire for DNR CODE STATUS. He did verbalize some interest in learning about hospice but would like to have further discussion with his present. His current oncologist is Dr. Gonsalez, urologist is Dr. Obregon, and radiation oncologist is Dr. Mondragon. Inpatient urology has been consulted and recommendations pending. Palliative care was consulted to assist with symptom management and to discuss options for goals of medical treatment. Patient seen in the ED holding. He appears somewhat frail but in no acute distress. He states that at this time his pain is fairly well controlled with Dilaudid. Reiterates that this pain started approximately 5 days ago and is progressively got worse. We talked about his functional status prior to this admission and how he has noticed a rapid decline over the past few weeks. He also reports a very poor appetite with weight loss of approximately 45 pounds in the last month and a half. His primary concern is how he will be able to go home with his who is his primary caregiver. We did discuss the difference between home health care and hospice care as well as briefly explored the possibility of long-term placement as I do not believe he would be a candidate for inpatient rehab. Further discussion regarding goals of care, etc. to follow. Function/Cognitive Trajectory: Prior to this admission the patient was unable to ambulate more than a few feet. He usually used a rolling walker but verbalized that he was thinking of getting a wheelchair. He lives on the [place] floor apartment building with elevators. He states over the past 2-3 weeks is been getting harder and harder for him to get up out of bed or chair and to pivot. He has been having a harder time getting to the bathroom. His is his primary caregiver and assist him with all ambulation ADL Review of Systems Constitutional: Reports anorexia, Reports fatigue, Reports weight loss Respiratory: Reports shortness of breath with activity Musculoskeletal: Reports back pain, Reports body aches, Reports decreased muscle mass PMFSH - History History Provided By: Patient - Medical History Medical History: Medical History (Last Updated 01/21/18 @ 12:47 by NIMO Cook) Afib Carpal tunnel syndrome History of chemotherapy Pneumonia Prostate cancer TIA (transient ischemic attack) DM type 2 (diabetes mellitus, type 2) HLD (hyperlipidemia) Hypothyroid - Surgical History Surgical History: Surgical History (Last Updated 01/21/18 @ 15:13 by NIMO Cook) H/O lumbar discectomy History of heart artery stent - Family History Family History: Family History (Last Reviewed 01/21/18 @ 15:13 by NIMO Cook) Other No family history of cancer - Social History I have reviewed the patient's Social History: Yes - Tobacco History Second Hand Smoke Exposure: No Tobacco Use In Past 30 Days: No Smoking Status: Former smoker - Alcohol History How Often Do You Have a Drink Containing Alcohol: Never - Substance Use History Substance History: No History of Abuse - Travel History History of Recent Travel: No Recent Travel in the [place] Within the Last 8 Weeks: No Recent Travel Out of the Country Within the Last 8 Weeks: No - Immunization History Tetanus Immunization: Unsure Medications and Allergies Active Medications: Active Medications Al Hydroxide/Mg Hydroxide (Milk Of Magnesia Liq) 30 ml PO Q12H PRN PRN Reason: Mild Constipation Atorvastatin Calcium (Lipitor) 80 mg PO DAILY [facility] Last Admin: 01/21/18 08:17 Dose: 80 mg Bisacodyl (Dulcolax Supp) 10 mg RECTAL DAILY PRN PRN Reason: SEVERE CONSITIPATION Calcium/Vitamin D (Oscal With D 250/125 Mg) 500 tab PO BID [facility] Last Admin: 01/21/18 08:17 Dose: 500 tab Dextrose (D50w Vial) 50 ml IV.PUSH UNSCH PRN PRN Reason: PER HYPOGLYCEMIA PROTOCOL Glucagon (Glucagon Inj) 1 mg OTHER PRN PRN PRN Reason: for Hypoglycemia Protocol Hydromorphone HCl (Dilaudid) 2 mg PO Q4H PRN PRN Reason: Pain 1-10 Last Admin: 01/21/18 06:52 Dose: 2 mg Hydromorphone HCl (Dilaudid Pf Inj) 1 mg IV.PUSH Q4H PRN PRN Reason: BREAKTHROUGH PAIN Insulin Aspart (Novolog Insulin Correctional Sugar Inj) 0 unit SQ ACHS [facility]; Protocol Last Admin: 01/21/18 08:20 Dose: Not Given Lactulose (Lactulose Liq) 30 ml PO DAILY PRN PRN Reason: SEVERE CONSITIPATION Levothyroxine Sodium (Synthroid) 25 mcg PO DAILY@0600 [facility] Last Admin: 01/21/18 06:47 Dose: 25 mcg Lisinopril (Prinivil) 2.5 mg PO DAILY [facility] Last Admin: 01/21/18 08:17 Dose: 2.5 mg Loratadine (Claritin) 10 mg PO DAILY [facility] Last Admin: 01/21/18 08:17 Dose: 10 mg Metoclopramide HCl (Reglan) 10 mg PO QID [facility] Last Admin: 01/21/18 08:17 Dose: 10 mg Metoprolol Succinate (Toprol Xl) 50 mg PO DAILY [facility] Last Admin: 01/21/18 08:17 Dose: 50 mg Naloxone HCl (Narcan Inj) 0.4 mg IV.PUSH UNSCH PRN PRN Reason: SEE LABEL COMMENTS Pharmacy Profile Note (Coumadin Consult Pharmacy) 1 each OTHER UNSCH PRN PRN Reason: PHARMACY DOCUMENTATION Prednisolone Sodium Phosphate (Prednisolone (Alc Free) Liq) 5 mg PO BID [facility] Last Admin: 01/21/18 08:17 Dose: 5 mg Propafenone HCl (Rythmol) 150 mg PO TID [facility] Last Admin: 01/21/18 08:17 Dose: 150 mg Senna/Docusate Sodium (Porsha-Colace) 1 tab PO BID [facility] Last Admin: 01/21/18 08:17 Dose: 1 tab Sennosides (Senokot) 17.2 mg PO Q12H PRN PRN Reason: Moderate Constipation Sodium Chloride (Ns Flush) 2 ml IV.FLUSH BID [facility] Last Admin: 01/21/18 08:17 Dose: 2 ml Sodium Chloride (Ns Flush) 2 ml IV.FLUSH PRN PRN PRN Reason: FLUSH AFTER USING IV ACCESS Tamsulosin HCl (Flomax) 0.4 mg PO BID [facility] Last Admin: 01/21/18 08:17 Dose: 0.4 mg Allergies Allergy/AdvReac Type Severity Reaction Status Date / Time codeine Allergy Intermediate RASH Verified 01/21/18 03:15 penicillin G Allergy Intermediate RASH Verified 01/21/18 03:15 Home Medications Medication Instructions Recorded Confirmed Type atorvastatin [Lipitor] 80 mg PO DAILY 01/20/18 01/20/18 History calcium carbonate-vitamin D3 1 tab PO BID 01/20/18 01/20/18 History [Calcium 500 + D (D3)] hydromorphone 2 mg PO Q4H PRN 01/20/18 01/20/18 History leuprolide (4 month) [Eligard (4 30 mg SUBCUT [id number] 01/20/18 01/20/18 History month)] levothyroxine 25 mcg PO DAILY 01/20/18 01/20/18 History lisinopril 2.5 mg PO DAILY 01/20/18 01/20/18 History loratadine [Claritin] 10 mg PO DAILY 01/20/18 01/20/18 History metformin 500 mg PO TID 01/20/18 01/20/18 History metoclopramide HCl [Reglan] 10 mg PO QID 01/20/18 01/20/18 History metoprolol succinate 50 mg PO DAILY 01/20/18 01/20/18 History prednisolone 5 mg PO BID 01/20/18 01/20/18 History propafenone 150 mg PO TID 01/20/18 01/20/18 History radium Ra 223 dichloride [Xofigo] 50 kbq/kg IV Q4W 01/20/18 01/20/18 History tamsulosin 0.4 mg PO BID 01/20/18 01/20/18 History warfarin [Coumadin] 2.5 mg PO QWEEK 01/20/18 01/20/18 History warfarin [Coumadin] 5 mg PO DAILY 01/20/18 01/20/18 History Advance Directives Living Will: Yes Healthcare Surrogate: Yes (Patient states he has HCS and living will at home) Health Care Surrogate Name and Number: Jaymie Hernandez [phone] Documented care wishes: The patient stated that he has a documented living will which includes community DNR and designation of his , Jaymie Hernandez as his healthcare surrogate at home. He states he will provide this paperwork at a later time. Today's verbally stated goals: Mr. Hernandez is currently able to participate in his own healthcare decision making. He does confer with his on any choices to be made. He states that he understands his disease process has progressed and due to his weakened physical condition is most likely not a candidate for any type of aggressive treatment modalities. He states that he is concerned with his comfort and mobility status. He is concerned for his 's ability continue to care for him given her medical conditions as well. He is open to hospice meeting to discuss possibilities. Family/friends goals: Patient's , Jaymie Rapp at bedside. She measures the patient's concerns about her functional status, continuing on more debility, pain control and mobility. She also verbalizes concern for assistance with ambulation and general care at home with ADLs. Hospice pamphlet provided and she is open to discussing options at bedside. She ultimately supports her 's decisions. 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 He states that she will provide this paperwork at a later date. Should she not be able to produce said paperwork, per [place] statutes, in the event that the patient was unable to participate in his own healthcare needs she would become designee by proxy Physical Exam Vital Signs: Vital Signs - 24 hr 01/20/18 20:10 01/20/18 22:00 01/20/18 23:00 Temperature 98.1 F Pulse Rate 104 H 81 Respiratory Rate 18 18 16 Blood Pressure 117/60 119/56 L Pulse Oximetry 95 95 01/21/18 00:16 01/21/18 05:30 Temperature Pulse Rate 87 94 H Respiratory Rate 18 18 Blood Pressure 116/67 136/76 Pulse Oximetry 95 96 I&O: Intake & Output 01/19/18 01/20/18 01/21/18 01/22/18 06:59 06:59 06:59 06:59 Intake Total 1000 / 1000 Balance 1000 / 1000 Weight 86.183 kg Physical Exam: CONSTITUTIONAL/GENERAL: This is an thin appearing patient, in no apparent distress. TUBES/LINES/DRAINS:PIV, nasal canula SKIN: No jaundice, rashes, or lesions. Ecchymoses on upper extremities. No wounds seen anteriorly. Skin temperature appropriate. Not diaphoretic. HEAD: Atraumatic. Normocephalic. EYES: Pupils equal and round and reactive. Extraocular motions intact. No scleral icterus. No injection or drainage. Fundi not examined. ENT: Hearing grossly normal. Nose without bleeding or purulent drainage. Throat without visible erythema, exudates, masses, or lesions. NECK: Trachea midline. Supple, nontender. No palpable thyroid enlargement or nodularity. CARDIOVASCULAR: Regular rate with irregular rhythm without murmurs, gallops, or rubs. No JVD. Peripheral pulses symmetric. RESPIRATORY/CHEST: Symmetric, unlabored respirations. Clear to auscultation. Breath sounds equal bilaterally. No wheezes, rales, or rhonchi. GASTROINTESTINAL: Abdomen soft, non-tender, nondistended. No hepato-splenomegaly , or palpable masses. No guarding. Bowel sounds present. GENITOURINARY: Without palpable bladder distension. Mathias catheter in place. MUSCULOSKELETAL: Extremities without clubbing, cyanosis, or edema. No joint tenderness or effusion noted. No calf tenderness. No mottling or clubbing. LYMPHATICS: No palpable cervical or supraclavicular adenopathy. NEUROLOGICAL: Awake and alert. Motor and sensory grossly within normal limits. Follows commands. Cognitively sharp. Moves all extremities. PSYCHIATRIC: No obvious anxiety/depression. no apparent hallucinations or other psychotic thought process. Diagnostic Tests Laboratory: Laboratory Results - last 72 hr 01/20/18 01/20/18 01/20/18 21:50 21:50 21:50 WBC 7.0 RBC 3.79 L Hgb 12.3 L Hct 36.0 L MCV 95.0 MCH 32.5 MCHC 34.2 RDW 18.5 H Plt Count 271 MPV 6.9 L Neut % (Auto) 79.3 H Lymph % (Auto) 9.5 [place] % (Auto) 10.7 H Eos % (Auto) 0.2 Baso % (Auto) 0.3 Neut # (Auto) 5.6 Lymph # (Auto) 0.7 L [place] # (Auto) 0.8 Eos # (Auto) 0.0 Baso # (Auto) 0.0 WBC Differential . Differential Comment Auto diff final PT 33.0 H INR 3.3 APTT 52.8 H Sodium 135 L Potassium 4.2 Chloride 101 Carbon Dioxide 25.7 Anion Gap 8 BUN 12 Creatinine 0.66 Estimated GFR Greater than 89 POC Glucose Random Glucose 124 H Calcium 8.6 Magnesium 1.6 Total Bilirubin 0.5 AST 45 H ALT 47 Alkaline Phosphatase 415 H Total Protein 6.4 Albumin 2.2 L Lipase 78 Urine Color Urine Clarity Urine pH Ur Specific [place] Urine Protein Urine Glucose (UA) Urine Ketones Urine Occult Blood Urine Nitrate Urine Bilirubin Urine Urobilinogen Ur Leukocyte Esterase Urine RBC Urine WBC Urine Bacteria Urine Mucus Micro UA Comment Ur Microscopic Review Urine Culture Comments 01/20/18 01/21/18 01/21/18 21:55 07:48 09:31 WBC RBC Hgb Hct MCV MCH MCHC RDW Plt Count MPV Neut % (Auto) Lymph % (Auto) [place] % (Auto) Eos % (Auto) Baso % (Auto) Neut # (Auto) Lymph # (Auto) [place] # (Auto) Eos # (Auto) Baso # (Auto) WBC Differential Differential Comment PT 34.7 H INR 3.4 APTT Sodium Potassium Chloride Carbon Dioxide Anion Gap BUN Creatinine Estimated GFR POC Glucose 106 Random Glucose Calcium Magnesium Total Bilirubin AST ALT Alkaline Phosphatase Total Protein Albumin Lipase Urine Color Yellow Urine Clarity Clear Urine pH 5.5 Ur Specific [place] 1.021 Urine Protein Trace Urine Glucose (UA) Negative Urine Ketones Negative Urine Occult Blood Moderate Urine Nitrate Negative Urine Bilirubin Negative Urine Urobilinogen 0.2 Ur Leukocyte Esterase Negative Urine RBC 15-50 H Urine WBC 0-5 Urine Bacteria Rare H Urine Mucus Few H Micro UA Comment Culture not ind Ur Microscopic Review Not Reportable Urine Culture Comments Culture not ind Result Diagrams: 01/20/18 21:50 01/20/18 21:50 Imaging: Impressions Abdomen/Pelvis CT 01/20/18 21:31 CONCLUSION: 1. Mild right-sided hydronephrosis and ureteral dilatation. No renal or ureteral calculus is identified. See below for description of bladder mass. There is a calculus laying within the bladder posterosuperiorly measuring about 3 mm. 2. Bladder mass is present. This is along the right superior aspect of the bladder and is suspicious for neoplasm. This soft tissue mass may be contributing to right-sided obstructive uropathy. Patient may benefit from cystoscopy. 3. Worsening bony sclerotic metastatic disease in the lower thoracic and lumbar spine. Extensive sclerotic changes in the pelvis. Cervical Spine MRI 01/20/18 21:31 CONCLUSION: 1. Multiple metastatic lesions more prominent at C7. 2. No compression fracture or canal stenosis. Lumbar Spine MRI 01/20/18 21:31 CONCLUSION: 1. Multiple metastatic lesions more notably at L3 with involvement of the vertebral body and posterior elements. There is also soft tissue density in the lateral epidural regions causing canal stenosis. 2. There is soft tissue density within both neural foramen at T11-T12 levels causing significant neural foraminal encroachment. Thoracic Spine MRI 01/20/18 21:31 CONCLUSION: 1. Multiple metastatic lesions greatest from T8-T12 with involvement of the neural foramen at T10-11 and T11-12 levels. 2. There is also involvement of the anterior and lateral epidural space at T11 causing canal stenosis. 3. No compression fractures or spondylolisthesis. Patient/Family Conference Present at Family Conference: Jaymie Hernandez, Family Conference Location: Bedside Issues Discussed: * Palliative care role, purpose, approach * Additional medical, psychosocial, and spiritual history * Patients general health, functional status, and cognitive changes in the months leading up to the current hospitalization * Patient/family understanding of the current medical problems * Patient/family understanding of prognosis * Patients goals of care as best understood from advance directives and/or conversations and/or values * Current medical treatment options and benefits/burdens of those options * Likely scenarios comparing ongoing aggressive care with a transition to comfort measures only * Questions answered to the best of my ability * Palliative care contact information provided The patient is currently able to participate in his own medical decision making. He states that he is concerned with comfort, functional status, worsening debility. His is currently his primary caregiver and her children live out of state. They both verbalize concerns with ongoing care at home. He states that he understands his disease process has progressed and due to his weakened physical condition is most likely not a candidate for any type of aggressive treatment modalities. He states that he is concerned with his comfort and mobility status. He is concerned for his 's ability continue to care for him given her medical conditions as well. He is open to hospice meeting to discuss possibilities. He again verbalized his wish to remain a DNR. Assessment and Plan Pertinent Non-Medical Issues: Psychosocial: The patient was born in [facility]. He lived there for the majority of his life where he worked on the [employer]. He retired to [employer] approximately 7 years ago then relocated to [facility] with his . The couple have 2 children a son and a daughter. Their son lives in [place] and their daughter currently lives in [place]. 1 of his fever press time she is to be golf but he verbalizes he is not been able to play in multiple years. He does the months is declining functional ability. Spiritual: Orthodoxy Legal: The patient states that he has a documented living will naming his as his healthcare surrogate. Should he be unable to locate this paperwork, per [place] statutes, his Jaymie Hernandez would be healthcare by proxy should he be unable to participate in his own healthcare decisions. Ethical issues impacting care: No known ethical issues impacting care at this time. Important Contacts: Jaymie Hernandez [phone], /HCP Prognosis: The patient currently has prostate cancer with metastatic disease to the bone. His disease processes intensifying, which currently is impacting his functional status. Patient has lost approximately 45 pounds in the last month and a half and verbalizes a sharp decline in his overall health. He is at increased risk for continued downward trajectory, and associated sequelae with metastatic disease, including . Patient would be hospice appropriate at this time. Code Status: No Code DNR Plan: * LEGAL DECISION MAKER -the patient is currently able to participate in his own healthcare decision making. Should he become incapacitated any time, his Jaymie Hernandez would be healthcare proxy. * GOALS - The patient is currently able to participate in his own medical decision making. He states that he is concerned with comfort, functional status , worsening debility. His is currently his primary caregiver and their children live out of state. They both verbalize concerns with ongoing care at home. He states that he understands his disease process has progressed and due to his weakened physical condition is most likely not a candidate for any type of aggressive treatment modalities. He states that he is concerned with his comfort and mobility status. He is concerned for his 's ability continue to care for him given her medical conditions as well. He is open to hospice meeting to discuss possibilities. He again verbalized his wish to remain a DNR. * CODE STATUS - DNR * SYMPTOMS Pain -patient with prostate cancer metastatic to the bone. Currently using Dilaudid 2 mg every 4 hours at home. Patient verbalizes he generally receives relief with this though the past couple of days he has been unable to. He at one point had a fentanyl patch of 25 mcg which he states resulted in extreme shortness of breath. He currently has Dilaudid 2 mg every 4 hours as needed with 1 mg IV push every 4 hours for breakthrough pain. Patient verbalizes relief with this current regimen. No other recommendations given at this time. Debilitysomewhat multifactorial including disease process, poor appetite, and pain. Patient could participate in physical therapy though I am not sure how beneficial it would be. He does currently have PT and OT ordered. If he were to transition to comfort measures I feel this would be appropriate. Palliative care will continue to follow during hospital course as condition evolves, to assist patient/decision maker with understanding of medical conditions, weighing benefits/burdens of treatment options, for clarification of goals of treatment. Additionally will assist with any symptoms of palliative concern. Case discussed with RN bedside key account manager Horace Serrato Thank you for the opportunity to participate in the care of Donny Hernandez. Attestation Attestation: To help prompt me to consider important information that might be impacting today's encounter and assessment, information from prior notes written by myself or my colleagues may have been "brought forward" into today's note. My signature on this note, however, is an attestation that I personally performed the exam, history, and/or decision-making noted today, and, unless otherwise indicated, the interactions with patient, family, and staff as well as the review of records all occurred today. I also attest that the listed assessment and stated plan reflect my best clinical judgment today based on the combination of historical information, prior notes, and today's exam/ interactions. When time spent is documented, it refers only to time spent today by the signer, or if indicated, combined time spent today by collaborating physician/nurse practitioner.
--- NOTE | 2018-01-21 14:01 | P.PN ---
Subjective Interval history: Follow-up intractable pain from metastasis prostate cancer January 21, 2018-patient seen and examined, reports some improvement of back pain. Initially patient declined hospice, however per palliative Physical Exam Vital signs: Vital Signs 01/20/18 20:10 01/20/18 22:00 01/20/18 23:00 Temperature 98.1 F Pulse Rate 104 H 81 Respiratory Rate 18 18 16 Blood Pressure 117/60 119/56 L Pulse Oximetry 95 95 01/21/18 00:16 01/21/18 05:30 Temperature Pulse Rate 87 94 H Respiratory Rate 18 18 Blood Pressure 116/67 136/76 Pulse Oximetry 95 96 Intake & Output 01/20/18 01/21/18 01/21/18 18:59 06:59 18:59 Intake Total 1000 / 1000 Balance 1000 / 1000 Weight 86.183 kg Intake: IV 1000 / 1000 NS Inj 1,000 ML @ 125 mls/hr IV 1000 / 1000 .CONT .Q8H YESENIA Rx#:[id number] Narrative: GENERAL: NAD. SKIN: No rashes, ecchymoses or lesions. Cool and dry. HEAD: Atraumatic. Normocephalic. EYES: No scleral icterus. No injection or drainage. ENT: Nose without bleeding, purulent drainage. NECK: Trachea midline. No JVD. CARDIOVASCULAR: Regular rate and rhythm without murmurs, gallops, or rubs. RESPIRATORY: Breath sounds equal bilaterally. Coarse rhonchi noted bibasilarly. GASTROINTESTINAL: Abdomen soft, non-tender, nondistended. No guarding. MUSCULOSKELETAL: Extremities without clubbing, cyanosis, or edema. No calf tenderness. NEUROLOGICAL: Awake and alert. Motor and sensory grossly within normal limits. Normal speech. . Results - Labs CBC & Chem 7: 01/20/18 21:50 01/20/18 21:50 Laboratory Results - last 24 hr 01/20/18 01/20/18 01/20/18 21:50 21:50 21:50 WBC 7.0 RBC 3.79 L Hgb 12.3 L Hct 36.0 L MCV 95.0 MCH 32.5 MCHC 34.2 RDW 18.5 H Plt Count 271 MPV 6.9 L Neut % (Auto) 79.3 H Lymph % (Auto) 9.5 Gordon % (Auto) 10.7 H Eos % (Auto) 0.2 Baso % (Auto) 0.3 Neut # (Auto) 5.6 Lymph # (Auto) 0.7 L Gordon # (Auto) 0.8 Eos # (Auto) 0.0 Baso # (Auto) 0.0 WBC Differential . Differential Comment Auto diff final PT 33.0 H INR 3.3 APTT 52.8 H Sodium 135 L Potassium 4.2 Chloride 101 Carbon Dioxide 25.7 Anion Gap 8 BUN 12 Creatinine 0.66 Estimated GFR Greater than 89 POC Glucose Random Glucose 124 H Calcium 8.6 Magnesium 1.6 Total Bilirubin 0.5 AST 45 H ALT 47 Alkaline Phosphatase 415 H Total Protein 6.4 Albumin 2.2 L Lipase 78 Urine Color Urine Clarity Urine pH Ur Specific [place] Urine Protein Urine Glucose (UA) Urine Ketones Urine Occult Blood Urine Nitrate Urine Bilirubin Urine Urobilinogen Ur Leukocyte Esterase Urine RBC Urine WBC Urine Bacteria Urine Mucus Micro UA Comment Ur Microscopic Review Urine Culture Comments 01/20/18 01/21/18 01/21/18 21:55 07:48 09:31 WBC RBC Hgb Hct MCV MCH MCHC RDW Plt Count MPV Neut % (Auto) Lymph % (Auto) Gordon % (Auto) Eos % (Auto) Baso % (Auto) Neut # (Auto) Lymph # (Auto) Gordon # (Auto) Eos # (Auto) Baso # (Auto) WBC Differential Differential Comment PT 34.7 H INR 3.4 APTT Sodium Potassium Chloride Carbon Dioxide Anion Gap BUN Creatinine Estimated GFR POC Glucose 106 Random Glucose Calcium Magnesium Total Bilirubin AST ALT Alkaline Phosphatase Total Protein Albumin Lipase Urine Color Yellow Urine Clarity Clear Urine pH 5.5 Ur Specific [place] 1.021 Urine Protein Trace Urine Glucose (UA) Negative Urine Ketones Negative Urine Occult Blood Moderate Urine Nitrate Negative Urine Bilirubin Negative Urine Urobilinogen 0.2 Ur Leukocyte Esterase Negative Urine RBC 15-50 H Urine WBC 0-5 Urine Bacteria Rare H Urine Mucus Few H Micro UA Comment Culture not ind Ur Microscopic Review Not Reportable Urine Culture Comments Culture not ind - Imaging Impressions Abdomen/Pelvis CT 01/20/18 21:31 CONCLUSION: 1. Mild right-sided hydronephrosis and ureteral dilatation. No renal or ureteral calculus is identified. See below for description of bladder mass. There is a calculus laying within the bladder posterosuperiorly measuring about 3 mm. 2. Bladder mass is present. This is along the right superior aspect of the bladder and is suspicious for neoplasm. This soft tissue mass may be contributing to right-sided obstructive uropathy. Patient may benefit from cystoscopy. 3. Worsening bony sclerotic metastatic disease in the lower thoracic and lumbar spine. Extensive sclerotic changes in the pelvis. Cervical Spine MRI 01/20/18 21:31 CONCLUSION: 1. Multiple metastatic lesions more prominent at C7. 2. No compression fracture or canal stenosis. Lumbar Spine MRI 01/20/18 21:31 CONCLUSION: 1. Multiple metastatic lesions more notably at L3 with involvement of the vertebral body and posterior elements. There is also soft tissue density in the lateral epidural regions causing canal stenosis. 2. There is soft tissue density within both neural foramen at T11-T12 levels causing significant neural foraminal encroachment. Thoracic Spine MRI 01/20/18 21:31 CONCLUSION: 1. Multiple metastatic lesions greatest from T8-T12 with involvement of the neural foramen at T10-11 and T11-12 levels. 2. There is also involvement of the anterior and lateral epidural space at T11 causing canal stenosis. 3. No compression fractures or spondylolisthesis. Assessment and Plan - Plan 72-year-old man with Prostate cancer with metastasis to the bone and now with a bladder mass -Urology consulted -appreciate assistance -Consult hospice -Continue home Dilaudid with breakthrough IV Dilaudid 1 mg every 4 hours as needed for breakthrough pain Type 2 Diabetes Mellitus -Resume metformin -Accu-Cheks Generalized weakness -physical therapy and occupational therapy Hypothyroidism -Continue home Synthroid DVT prophylaxis -INR 3.3 on admission -Coumadin currently being held -Pharmacy consultation for Coumadin monitoring and therapeutic dosing
[2018-01-21] MEDS: HYDROmorphone PF Inj 2 MG/ML Vial IV.PUSH PRN (23:51)
[2018-01-22] MEDS: HYDROmorphone PF Inj 2 MG/ML Vial IV.PUSH PRN (07:29)
[2018-01-22 07:41] LABS: INR 2.5 Ratio; Prothrombin Time 24.8 sec (9.8-11.6)
[2018-01-22 07:47] VITALS: RESP 20
[2018-01-22] MEDS: Senna/Docusate Sodium 8.6/50 MG Tablet PO SCH (10:21)
[2018-01-22] MEDS: Loratadine 10 MG Tablet PO SCH (10:21)
[2018-01-22] MEDS: Propafenone 150 MG Tablet PO SCH ×4 (10:21→18:00)
[2018-01-22] MEDS: Metoclopramide 10 MG Tablet PO SCH ×4 (10:21→19:06)
[2018-01-22] MEDS: Calcium/Vitamin D 250/125 MG Tablet PO SCH (10:21)
[2018-01-22] MEDS: prednisoLONE (Alcohol Free) Liq 15 MG/5 ML Oral Syringe PO SCH (10:22)
[2018-01-22] MEDS: Sodium Chloride 0.9% 2 ML Flush BID IV.FLUSH SCH (10:27)
[2018-01-22] MEDS: Insulin NovoLOG Aspart Correctional Sugar Inj SQ SCH ×3 (10:27→17:00)
[2018-01-22] MEDS: Lisinopril 5 MG Tablet PO SCH (10:27)
--- NOTE | 2018-01-22 11:16 | P.PN ---
Subjective Interval history: Follow-up intractable back pain/metastasis prostate cancer January 22, 2018-patient seen and examined, want to go home. Not Ready for hospice yet until his whole family including his sons are reunited and discussed about it. Physical Exam Vital signs: Vital Signs 01/21/18 15:10 01/21/18 15:51 01/21/18 15:55 Temperature 97.8 F Pulse Rate 98 H 96 H Respiratory Rate 16 18 Blood Pressure 124/69 Pulse Oximetry 100 01/21/18 16:00 01/21/18 20:00 01/21/18 20:23 Temperature 98.2 F Pulse Rate 103 H 98 H Respiratory Rate 18 20 Blood Pressure 129/65 Pulse Oximetry 90 L 01/22/18 00:00 01/22/18 00:26 01/22/18 04:00 Temperature 98.6 F 98.2 F Pulse Rate 108 H 119 H 110 H Respiratory Rate 18 16 Blood Pressure 136/70 148/84 H Pulse Oximetry 96 96 01/22/18 04:22 01/22/18 07:42 01/22/18 07:54 Temperature 97.4 F L Pulse Rate 107 H 96 H 96 H Respiratory Rate 20 Blood Pressure 125/70 Pulse Oximetry 96 Intake & Output 01/21/18 01/22/18 01/22/18 18:59 06:59 18:59 Intake Total 890 / 890 240 / 240 Balance 890 / 890 240 / 240 Weight 82.5 kg Intake: Oral 240 / 240 240 / 240 Other 650 / 650 Other: Date of Last Bowel Movement 01/20/18 Narrative: GENERAL: NAD. SKIN: No rashes, ecchymoses or lesions. Cool and dry. HEAD: Atraumatic. Normocephalic. EYES: No scleral icterus. No injection or drainage. ENT: Nose without bleeding, purulent drainage. NECK: Trachea midline. No JVD. CARDIOVASCULAR: Regular rate and rhythm without murmurs, gallops, or rubs. RESPIRATORY: Breath sounds equal bilaterally. Coarse rhonchi noted bibasilarly. GASTROINTESTINAL: Abdomen soft, non-tender, nondistended. No guarding. MUSCULOSKELETAL: Extremities without clubbing, cyanosis, or edema. No calf tenderness. NEUROLOGICAL: Awake and alert. Motor and sensory grossly within normal limits. Normal speech. . Results - Labs CBC & Chem 7: 01/20/18 21:50 01/20/18 21:50 Laboratory Results - last 24 hr 01/21/18 01/21/18 01/22/18 17:32 21:09 06:47 PT 24.8 H INR 2.5 POC Glucose 130 H 114 H 01/22/18 07:58 PT INR POC Glucose 152 H - Procedures none Assessment and Plan - Plan 72-year-old man with Prostate cancer with metastasis to the bone and now with a bladder mass -Urology consulted -appreciate assistance -Patient would consider Hospice however after discharge home -Continue home Dilaudid with breakthrough IV Dilaudid 1 mg every 4 hours as needed for breakthrough pain Type 2 Diabetes Mellitus -Continue metformin -Accu-Cheks Generalized weakness -physical therapy and occupational therapy Hypothyroidism -Continue home Synthroid DVT prophylaxis -INR therapeutic -Resume Coumadin -Pharmacy consultation for Coumadin monitoring and therapeutic dosing Hypoxemia -Perform walk test to discharge Discharge patient to home Condition on discharge: guarded Regular Diet as tolerated Ad Mamta activity Rx written:see EMR Follow-up with primary care physician
[2018-01-22 16:43] VITALS: BP 128/69; PULSE 101; TEMP 98.5; O2SAT 96
[2018-01-22] MEDS ORDERED: Calcium/Vitamin D 250/125 MG Tablet PO SCH (21:00)
== END 2018-01-22 19:59 | disposition home or self-care (01) ==
LOC: NEPD 19:44 → NEDA 19:44 → HCIN 01-21 15:16
PROVIDERS: ADMIT Hospitalist; ATTEND Hospitalist